=== PATIENT | female | born 1930 | race Caucasian/White ===

== ENCOUNTER 2017-08-21 15:16 | Inpatient (IN) ==
[2017-08-21] MEDS ORDERED: ACETAMINOPHEN 325 MG TABLET PO PRN (16:54)
[2017-08-21] MEDS ORDERED: ONDANSETRON 4 MG/2 ML VIAL IV PRN (16:55)
[2017-08-21] MEDS ORDERED: LOPERAMIDE 2 MG CAPSULE PO PRN ×2 (16:56)
[2017-08-21] MEDS ORDERED: ALUMINUM/MAGNES/SIMETH MAX STR 30 ML UDCUP PO PRN (16:56)
[2017-08-21] MEDS ORDERED: guaiFENesin 200 MG/10 ML UDCUP PO PRN (16:57)
[2017-08-21 17:30] LABS: Basophils # 0.1 10*3/uL (0.0-0.2); Basophils % 0.5 % (0.0-0.8); Eosinophils % 0.1 % (0.00-10.9); Hematocrit 35.2 VOL% (35.7-47.0); Hemoglobin 11.8 GM/DL (12.0-16.0); Immature Granulocytes % 0.8 %; Immature Granulocytes Absolute 0.11 #; Lymphocytes % 6.9 % (21.3-54.2); Mean Corpuscular HGB Conc 33.5 GM/DL (32-36); Mean Corpuscular Hemoglobin 33 PG (27-34); Mean Corpuscular Volume 98.1 FL (87-102); Mean Platelet Volume 11.3 FL (9.6-12.0); Monocytes # 1.5 10*3/uL (0.11-0.8); Monocytes % 10.4 % (1.7-12.7); Neutrophils # 11.9 10*3/uL (1.4-7.4); Neutrophils % 81.3 % (38.7-73.9); Platelet Count 310 T/CUMM (130-400); Red Blood Count 3.59 MC/CUMM (3.8-5.5); Red Cell Distribution Width 13.5 % (9.3-17.3); White Blood Count 14.6 T/CUMM (4-12)
[2017-08-21 17:57] LABS: Lymphocytes 7 % (20-55); Platelet Estimate Adequate; Segmented Neutrophils 83 % (50-85); Total Cells Counted 100
[2017-08-21] MEDS: CEFEPIME 1,000 MG in SYRINGE 1 EACH IV SCH (17:59)
[2017-08-21] MEDS: LEVOFLOXACIN INJ 500 MG in PREMIX 1 EACH IV SCH (17:59)
[2017-08-21 18:04] LABS: Albumin 2.9 G/DL (3.4-5.0); Bilirubin,Total 0.8 MG/DL (0.2-1.0); Calcium 8.2 MG/DL (8.5-10.1); Osmolality,Calculated 307.3 MOS/KG (273-304); Potassium 4.3 MMOL/L (3.5-5.1); Total Protein 6.6 G/DL (6.4-8.3)
[2017-08-21] MEDS: ARFORMOTEROL 15 MCG/2 ML NEB RESP TX SCH (18:33)
[2017-08-21] MEDS: BUDESONIDE 0.5 MG/2 ML NEB RESP TX SCH (18:37)
[2017-08-21] MEDS: ALBUTEROL/IPRATROPIUM 3 ML NEB RESP TX SCH (18:37)
[2017-08-21] MEDS: DONEPEZIL 10 MG TABLET PO SCH (21:14)
[2017-08-21] MEDS: MEMANTINE 10 MG TABLET PO SCH (21:14)
[2017-08-21 22:07] LABS: Apearance,Urine Slightly Hazy (Clear); Bacteria,Urine Occasional /HPF (Few); Bilirubin,Urine Negative (Negative); Blood, Urine Negative (Negative); Glucose,Urine (UA) Negative (Negative); Hyaline Casts,Urine 8 /LPF (0-3); Ketones,Urine Negative (Negative); Mucus,Urine Occasional /LPF (Occasional); Nitrite,Urine Negative (Negative); Protein,Urine 30 MG/DL; RBC,Urine 4 /HPF (0-4); Squamous Epithelial Cell,Urine Occasional /HPF (0-10); Urine Color Yellow (Yellow); WBC,Urine 10 /HPF (0-6)
[2017-08-22] MEDS: CLORAZEPATE 3.75 MG TABLET PO PRN (03:15)
[2017-08-22] MEDS: ALBUTEROL/IPRATROPIUM 3 ML NEB RESP TX SCH ×4 (03:46→19:55)
[2017-08-22] MEDS: CEFEPIME 1,000 MG in SYRINGE 1 EACH IV SCH ×2 (06:16→21:47)
[2017-08-22] MEDS ORDERED: FUROSEMIDE 40 MG/4 ML VIAL IV ONE (06:33)
[2017-08-22] MEDS: BUDESONIDE 0.5 MG/2 ML NEB RESP TX SCH ×2 (07:52→19:56)
[2017-08-22] MEDS: LEVOTHYROXINE 100 MCG TABLET PO SCH (09:30)
[2017-08-22] MEDS: ASPIRIN EC 81 MG TABLET PO SCH (09:30)
[2017-08-22] MEDS: DILTIAZEM CD 180 MG CAPSULE PO SCH (09:31)
[2017-08-22] MEDS: MEMANTINE 10 MG TABLET PO SCH ×2 (09:32→20:37)
[2017-08-22] MEDS: SERTRALINE 50 MG TABLET PO SCH (09:33)
[2017-08-22] MEDS: MULTIVITAMIN (OCUVITE) TABLET PO SCH (09:33)
[2017-08-22] MEDS ORDERED: DIGOXIN 0.5 MG/2 ML AMP IV ONE ×3 (12:00→18:03)
[2017-08-22] MEDS: APIXABAN 2.5 MG TABLET PO SCH ×2 (13:12→20:37)
[2017-08-22] MEDS: ARFORMOTEROL 15 MCG/2 ML NEB RESP TX SCH ×2 (14:28→19:55)
[2017-08-22] MEDS: METOPROLOL TARTRATE 25 MG TABLET PO SCH ×2 (15:55→20:37)
[2017-08-22] MEDS: LEVOFLOXACIN INJ 500 MG in PREMIX 1 EACH IV SCH (20:37)
[2017-08-22] MEDS: DONEPEZIL 10 MG TABLET PO SCH (20:37)
[2017-08-22] MEDS ORDERED: DILTIAZEM 25 MG/5 ML VIAL IV ONE (21:01)
[2017-08-22] MEDS ORDERED: MORPHINE 2 MG/1 ML SYRINGE IV ONE (21:02)
[2017-08-22] MEDS ORDERED: AMIODARONE INJ 150 MG in DEXTROSE 5% 100 ML IV ONE (21:14)
[2017-08-22] MEDS ORDERED: AMIODARONE 150 MG/3 ML VIAL ONE (21:17)
[2017-08-22] MEDS ORDERED: AMIODARONE INJ 450 MG in DEXTROSE 5% 241 ML IV SCH (21:30)
[2017-08-22] MEDS ORDERED: DILTIAZEM INJ 100 MG in SODIUM CHLORIDE 0.9% 100 ML IV SCH (21:30)
[2017-08-23] MEDS: ALBUTEROL/IPRATROPIUM 3 ML NEB RESP TX SCH ×4 (00:03→20:04)
[2017-08-23 05:35] LABS: Basophils % 0.3 % (0.0-0.8); Eosinophils # 0.1 10*3/uL (0.0-0.87); Eosinophils % 0.4 % (0.00-10.9); Hematocrit 32.4 VOL% (35.7-47.0); Hemoglobin 10.8 GM/DL (12.0-16.0); Immature Granulocytes Absolute 0.31 #; Lymphocytes # 1.3 10*3/uL (1.4-4.0); Mean Corpuscular HGB Conc 33.3 GM/DL (32-36); Mean Corpuscular Hemoglobin 33 PG (27-34); Mean Corpuscular Volume 97.9 FL (87-102); Mean Platelet Volume 11.3 FL (9.6-12.0); Monocytes # 1.3 10*3/uL (0.11-0.8); Monocytes % 8.3 % (1.7-12.7); NRBC # 0.05 10*3/uL; Neutrophils # 12.7 10*3/uL (1.4-7.4); Platelet Count 310 T/CUMM (130-400); Red Blood Count 3.31 MC/CUMM (3.8-5.5); Red Cell Distribution Width 13.4 % (9.3-17.3); White Blood Count 15.7 T/CUMM (4-12)
[2017-08-23] MEDS: LEVOTHYROXINE 100 MCG TABLET PO SCH (06:05)
[2017-08-23 06:07] LABS: Calcium 7.8 MG/DL (8.5-10.1); Osmolality,Calculated 293.5 MOS/KG (273-304); Potassium 3.9 MMOL/L (3.5-5.1)
[2017-08-23] MEDS: ARFORMOTEROL 15 MCG/2 ML NEB RESP TX SCH ×2 (07:40→20:04)
[2017-08-23] MEDS: BUDESONIDE 0.5 MG/2 ML NEB RESP TX SCH ×2 (07:40→20:04)
[2017-08-23] MEDS: AMIODARONE INJ 450 MG in DEXTROSE 5% 241 ML IV SCH (08:30)
[2017-08-23] MEDS ORDERED: FUROSEMIDE 40 MG/4 ML VIAL IV ONE (08:50)
[2017-08-23] MEDS: APIXABAN 2.5 MG TABLET PO SCH ×2 (08:54→21:43)
[2017-08-23] MEDS: DILTIAZEM CD 180 MG CAPSULE PO SCH (08:54)
[2017-08-23] MEDS: METOPROLOL TARTRATE 25 MG TABLET PO SCH ×2 (08:54→19:10)
[2017-08-23] MEDS: MULTIVITAMIN (OCUVITE) TABLET PO SCH (08:54)
[2017-08-23] MEDS: ASPIRIN EC 81 MG TABLET PO SCH (08:54)
[2017-08-23] MEDS: SERTRALINE 50 MG TABLET PO SCH (08:55)
[2017-08-23] MEDS: MEMANTINE 10 MG TABLET PO SCH ×2 (08:55→21:43)
[2017-08-23] MEDS: CEFEPIME 1,000 MG in SYRINGE 1 EACH IV SCH ×2 (10:28→21:39)
[2017-08-23] MEDS: LEVOFLOXACIN INJ 500 MG in PREMIX 1 EACH IV SCH (21:43)
[2017-08-24] MEDS: AMIODARONE INJ 450 MG in DEXTROSE 5% 241 ML IV SCH (00:46)
[2017-08-24] MEDS: METOPROLOL TARTRATE 25 MG TABLET PO SCH ×3 (00:49→13:54)
[2017-08-24] MEDS: ALBUTEROL/IPRATROPIUM 3 ML NEB RESP TX SCH ×4 (01:57→19:00)
[2017-08-24 02:47] LABS: Basophils # 0.1 10*3/uL (0.0-0.2); Basophils % 0.4 % (0.0-0.8); Eosinophils # 0.1 10*3/uL (0.0-0.87); Eosinophils % 0.4 % (0.00-10.9); Hematocrit 32.1 VOL% (35.7-47.0); Hemoglobin 10.5 GM/DL (12.0-16.0); Immature Granulocytes % 2.4 %; Immature Granulocytes Absolute 0.44 #; Lymphocytes # 1.2 10*3/uL (1.4-4.0); Lymphocytes % 6.5 % (21.3-54.2); Mean Corpuscular HGB Conc 32.7 GM/DL (32-36); Mean Corpuscular Hemoglobin 32 PG (27-34); Mean Corpuscular Volume 98.5 FL (87-102); Mean Platelet Volume 11.2 FL (9.6-12.0); Monocytes # 1.4 10*3/uL (0.11-0.8); Monocytes % 7.5 % (1.7-12.7); NRBC # 0.06 10*3/uL; Neutrophils # 15.2 10*3/uL (1.4-7.4); Neutrophils % 82.8 % (38.7-73.9); Platelet Count 321 T/CUMM (130-400); Red Blood Count 3.26 MC/CUMM (3.8-5.5); Red Cell Distribution Width 13.2 % (9.3-17.3); White Blood Count 18.4 T/CUMM (4-12)
[2017-08-24 04:41] LABS: Calcium 8.1 MG/DL (8.5-10.1); Osmolality,Calculated 292.4 MOS/KG (273-304)
[2017-08-24] MEDS: DILTIAZEM 60 MG TABLET PO SCH ×2 (05:03→13:54)
[2017-08-24] MEDS: LEVOTHYROXINE 100 MCG TABLET PO SCH (05:30)
[2017-08-24] MEDS: ARFORMOTEROL 15 MCG/2 ML NEB RESP TX SCH ×2 (07:05→19:00)
[2017-08-24] MEDS: BUDESONIDE 0.5 MG/2 ML NEB RESP TX SCH ×2 (07:05→19:00)
[2017-08-24] MEDS: APIXABAN 2.5 MG TABLET PO SCH ×2 (08:53→21:42)
[2017-08-24] MEDS: ASPIRIN EC 81 MG TABLET PO SCH (08:53)
[2017-08-24] MEDS: MULTIVITAMIN (OCUVITE) TABLET PO SCH (08:53)
[2017-08-24] MEDS: CEFEPIME 1,000 MG in SYRINGE 1 EACH IV SCH ×2 (08:53→21:42)
[2017-08-24] MEDS: MEMANTINE 10 MG TABLET PO SCH ×2 (08:53→21:42)
[2017-08-24] MEDS: SERTRALINE 50 MG TABLET PO SCH (08:53)
[2017-08-24] MEDS: ALBUTEROL 2.5 MG/3 ML NEB RESP TX PRN (14:43)
[2017-08-24] MEDS: DILTIAZEM 30 MG TABLET PO SCH (17:09)
[2017-08-24] MEDS: CLORAZEPATE 3.75 MG TABLET PO PRN (20:08)
[2017-08-24] MEDS ORDERED: BISOPROLOL 5 MG TABLET PO SCH (21:00)
[2017-08-24] MEDS: LEVOFLOXACIN INJ 500 MG in PREMIX 1 EACH IV SCH (21:50)
[2017-08-25] MEDS: ALBUTEROL/IPRATROPIUM 3 ML NEB RESP TX SCH ×4 (00:20→19:42)
[2017-08-25] MEDS: DILTIAZEM 30 MG TABLET PO SCH ×4 (01:27→17:38)
[2017-08-25] MEDS: LEVOTHYROXINE 100 MCG TABLET PO SCH (05:44)
[2017-08-25 06:09] LABS: Basophils # 0.1 10*3/uL (0.0-0.2); Basophils % 0.4 % (0.0-0.8); Eosinophils # 0.2 10*3/uL (0.0-0.87); Eosinophils % 1.1 % (0.00-10.9); Hematocrit 31.6 VOL% (35.7-47.0); Hemoglobin 10.1 GM/DL (12.0-16.0); Immature Granulocytes Absolute 0.34 #; Lymphocytes # 1.2 10*3/uL (1.4-4.0); Lymphocytes % 7.1 % (21.3-54.2); Mean Corpuscular Hemoglobin 32 PG (27-34); Mean Corpuscular Volume 100.3 FL (87-102); Mean Platelet Volume 11.1 FL (9.6-12.0); Monocytes # 1.2 10*3/uL (0.11-0.8); Monocytes % 6.9 % (1.7-12.7); Neutrophils # 14.1 10*3/uL (1.4-7.4); Neutrophils % 82.5 % (38.7-73.9); Platelet Count 325 T/CUMM (130-400); Red Blood Count 3.15 MC/CUMM (3.8-5.5); Red Cell Distribution Width 13.6 % (9.3-17.3); White Blood Count 17.1 T/CUMM (4-12)
[2017-08-25 06:47] LABS: Calcium 8.3 MG/DL (8.5-10.1); Osmolality,Calculated 286.5 MOS/KG (273-304); Potassium 4.3 MMOL/L (3.5-5.1)
[2017-08-25] MEDS: BUDESONIDE 0.5 MG/2 ML NEB RESP TX SCH ×2 (07:10→19:44)
[2017-08-25] MEDS: ARFORMOTEROL 15 MCG/2 ML NEB RESP TX SCH ×2 (07:10→19:44)
[2017-08-25] MEDS: MEMANTINE 10 MG TABLET PO SCH ×2 (08:31→21:56)
[2017-08-25] MEDS: ASPIRIN EC 81 MG TABLET PO SCH (08:31)
[2017-08-25] MEDS: SERTRALINE 50 MG TABLET PO SCH (08:31)
[2017-08-25] MEDS: MULTIVITAMIN (OCUVITE) TABLET PO SCH (08:31)
[2017-08-25] MEDS: APIXABAN 2.5 MG TABLET PO SCH ×2 (08:31→21:56)
[2017-08-25] MEDS: CEFEPIME 1,000 MG in SYRINGE 1 EACH IV SCH ×2 (08:31→21:57)
[2017-08-25] MEDS ORDERED: DIGOXIN 0.25 MG TABLET PO ONE ×2 (12:43→18:00)
[2017-08-25] MEDS: BISOPROLOL 5 MG TABLET PO SCH (21:56)
[2017-08-25] MEDS: LEVOFLOXACIN INJ 500 MG in PREMIX 1 EACH IV SCH (22:00)
[2017-08-26] MEDS: ALBUTEROL/IPRATROPIUM 3 ML NEB RESP TX SCH ×4 (00:55→20:35)
[2017-08-26] MEDS: DILTIAZEM 30 MG TABLET PO SCH ×4 (01:20→18:04)
[2017-08-26 04:59] LABS: Basophils # 0.1 10*3/uL (0.0-0.2); Basophils % 0.4 % (0.0-0.8); Eosinophils # 0.2 10*3/uL (0.0-0.87); Eosinophils % 1.4 % (0.00-10.9); Hematocrit 30.9 VOL% (35.7-47.0); Hemoglobin 10.3 GM/DL (12.0-16.0); Immature Granulocytes % 2.2 %; Immature Granulocytes Absolute 0.36 #; Lymphocytes # 1.3 10*3/uL (1.4-4.0); Mean Corpuscular HGB Conc 33.3 GM/DL (32-36); Mean Corpuscular Hemoglobin 33 PG (27-34); Mean Corpuscular Volume 97.5 FL (87-102); Mean Platelet Volume 10.9 FL (9.6-12.0); Monocytes # 1.1 10*3/uL (0.11-0.8); Monocytes % 6.6 % (1.7-12.7); Neutrophils # 13.1 10*3/uL (1.4-7.4); Neutrophils % 81.4 % (38.7-73.9); Platelet Count 333 T/CUMM (130-400); Red Blood Count 3.17 MC/CUMM (3.8-5.5); Red Cell Distribution Width 13.5 % (9.3-17.3); White Blood Count 16.1 T/CUMM (4-12)
[2017-08-26 06:00] LABS: Calcium 8.2 MG/DL (8.5-10.1); Osmolality,Calculated 288.7 MOS/KG (273-304); Potassium 4.8 MMOL/L (3.5-5.1)
[2017-08-26] MEDS: LEVOTHYROXINE 100 MCG TABLET PO SCH (06:07)
[2017-08-26] MEDS ORDERED: FUROSEMIDE 20 MG/2 ML VIAL IV ONE (07:48)
[2017-08-26] MEDS: ARFORMOTEROL 15 MCG/2 ML NEB RESP TX SCH ×2 (07:57→20:35)
[2017-08-26] MEDS: BUDESONIDE 0.5 MG/2 ML NEB RESP TX SCH ×2 (07:57→20:35)
[2017-08-26] MEDS ORDERED: DIGOXIN 0.125 MG TABLET PO SCH (09:00)
[2017-08-26] MEDS: MULTIVITAMIN (OCUVITE) TABLET PO SCH (09:42)
[2017-08-26] MEDS: ASPIRIN EC 81 MG TABLET PO SCH (09:42)
[2017-08-26] MEDS: SERTRALINE 50 MG TABLET PO SCH (09:43)
[2017-08-26] MEDS: MEMANTINE 10 MG TABLET PO SCH ×2 (09:43→22:01)
[2017-08-26] MEDS: APIXABAN 2.5 MG TABLET PO SCH ×2 (09:43→22:01)
[2017-08-26] MEDS: CEFEPIME 1,000 MG in SYRINGE 1 EACH IV SCH ×2 (09:45→22:02)
[2017-08-26] MEDS: BISOPROLOL 5 MG TABLET PO SCH ×2 (09:45→22:02)
[2017-08-26] MEDS: DILTIAZEM CD 120 MG CAPSULE PO SCH (22:02)
[2017-08-26] MEDS: LEVOFLOXACIN INJ 500 MG in PREMIX 1 EACH IV SCH (22:09)
[2017-08-27] MEDS: ALBUTEROL/IPRATROPIUM 3 ML NEB RESP TX SCH ×4 (01:48→19:30)
[2017-08-27] MEDS: LEVOTHYROXINE 100 MCG TABLET PO SCH (06:11)
[2017-08-27] MEDS: ARFORMOTEROL 15 MCG/2 ML NEB RESP TX SCH ×2 (07:02→19:30)
[2017-08-27] MEDS: BUDESONIDE 0.5 MG/2 ML NEB RESP TX SCH ×2 (07:02→19:30)
[2017-08-27] MEDS ORDERED: FUROSEMIDE 40 MG/4 ML VIAL IV ONE (08:13)
[2017-08-27] MEDS: APIXABAN 2.5 MG TABLET PO SCH ×2 (10:13→22:03)
[2017-08-27] MEDS: SERTRALINE 50 MG TABLET PO SCH (10:13)
[2017-08-27] MEDS: DILTIAZEM CD 120 MG CAPSULE PO SCH (10:13)
[2017-08-27] MEDS: ASPIRIN EC 81 MG TABLET PO SCH (10:13)
[2017-08-27] MEDS: BISOPROLOL 5 MG TABLET PO SCH ×2 (10:14→22:03)
[2017-08-27] MEDS: MULTIVITAMIN (OCUVITE) TABLET PO SCH (10:14)
[2017-08-27] MEDS: CEFEPIME 1,000 MG in SYRINGE 1 EACH IV SCH ×2 (10:16→22:03)
[2017-08-27] MEDS: MEMANTINE 10 MG TABLET PO SCH ×2 (10:23→22:03)
[2017-08-27] MEDS ORDERED: DIGOXIN 0.5 MG/2 ML AMP IV ONE (17:11)
[2017-08-27] MEDS: LEVOFLOXACIN INJ 500 MG in PREMIX 1 EACH IV SCH (22:06)
[2017-08-28] MEDS: ALBUTEROL/IPRATROPIUM 3 ML NEB RESP TX SCH ×2 (00:16→07:21)
[2017-08-28 05:15] LABS: Basophils # 0.1 10*3/uL (0.0-0.2); Basophils % 0.4 % (0.0-0.8); Eosinophils # 0.2 10*3/uL (0.0-0.87); Eosinophils % 1.4 % (0.00-10.9); Hematocrit 29.9 VOL% (35.7-47.0); Hemoglobin 9.6 GM/DL (12.0-16.0); Immature Granulocytes % 1.2 %; Immature Granulocytes Absolute 0.15 #; Lymphocytes # 1.4 10*3/uL (1.4-4.0); Lymphocytes % 11.3 % (21.3-54.2); Mean Corpuscular HGB Conc 32.1 GM/DL (32-36); Mean Corpuscular Hemoglobin 32 PG (27-34); Mean Corpuscular Volume 100.7 FL (87-102); Mean Platelet Volume 10.5 FL (9.6-12.0); Monocytes # 0.9 10*3/uL (0.11-0.8); Monocytes % 7.5 % (1.7-12.7); Neutrophils # 9.7 10*3/uL (1.4-7.4); Neutrophils % 78.2 % (38.7-73.9); Platelet Count 323 T/CUMM (130-400); Red Blood Count 2.97 MC/CUMM (3.8-5.5); Red Cell Distribution Width 13.8 % (9.3-17.3); White Blood Count 12.5 T/CUMM (4-12)
[2017-08-28 05:52] LABS: Osmolality,Calculated 288.5 MOS/KG (273-304)
[2017-08-28] MEDS: LEVOTHYROXINE 100 MCG TABLET PO SCH (06:07)
[2017-08-28] MEDS: BUDESONIDE 0.5 MG/2 ML NEB RESP TX SCH ×2 (07:21→18:50)
[2017-08-28] MEDS: ARFORMOTEROL 15 MCG/2 ML NEB RESP TX SCH ×2 (07:21→18:50)
[2017-08-28] MEDS ORDERED: LEVOFLOXACIN 250 MG TABLET PO SCH (09:00)
[2017-08-28] MEDS: MULTIVITAMIN (OCUVITE) TABLET PO SCH (09:31)
[2017-08-28] MEDS: MEMANTINE 10 MG TABLET PO SCH ×2 (09:31→21:30)
[2017-08-28] MEDS: BISOPROLOL 5 MG TABLET PO SCH ×3 (09:31→21:30)
[2017-08-28] MEDS: ASPIRIN EC 81 MG TABLET PO SCH (09:31)
[2017-08-28] MEDS: APIXABAN 2.5 MG TABLET PO SCH ×2 (09:32→21:30)
[2017-08-28] MEDS: SERTRALINE 50 MG TABLET PO SCH (09:32)
[2017-08-28] MEDS ORDERED: DIGOXIN 0.125 MG TABLET PO SCH ×2 (13:00→17:10)
[2017-08-28] MEDS ORDERED: FUROSEMIDE 40 MG TABLET PO SCH (14:30)
[2017-08-28] MEDS: CLORAZEPATE 3.75 MG TABLET PO PRN (14:42)
[2017-08-28] MEDS ORDERED: DIGOXIN 0.125 MG TABLET PO ONE (17:09)
[2017-08-28] MEDS ORDERED: DIGOXIN 0.5 MG/2 ML AMP IV ONE (17:11)
[2017-08-29] MEDS: CLORAZEPATE 3.75 MG TABLET PO PRN (01:51)
[2017-08-29] MEDS: ALBUTEROL 2.5 MG/3 ML NEB RESP TX PRN (02:10)
[2017-08-29 05:04] LABS: Basophils % 0.5 % (0.0-0.8); Eosinophils # 0.2 10*3/uL (0.0-0.87); Eosinophils % 2.1 % (0.00-10.9); Hematocrit 29.9 VOL% (35.7-47.0); Hemoglobin 9.8 GM/DL (12.0-16.0); Immature Granulocytes % 1.1 %; Lymphocytes # 1.4 10*3/uL (1.4-4.0); Lymphocytes % 16.3 % (21.3-54.2); Mean Corpuscular HGB Conc 32.8 GM/DL (32-36); Mean Corpuscular Hemoglobin 33 PG (27-34); Mean Platelet Volume 10.2 FL (9.6-12.0); Monocytes # 0.8 10*3/uL (0.11-0.8); Monocytes % 8.6 % (1.7-12.7); Neutrophils # 6.3 10*3/uL (1.4-7.4); Neutrophils % 71.4 % (38.7-73.9); Platelet Count 325 T/CUMM (130-400); Red Blood Count 3.02 MC/CUMM (3.8-5.5); Red Cell Distribution Width 13.6 % (9.3-17.3); White Blood Count 8.8 T/CUMM (4-12)
[2017-08-29 05:40] LABS: Calcium 8.2 MG/DL (8.5-10.1)
[2017-08-29 05:41] LABS: Osmolality,Calculated 290.4 MOS/KG (273-304); Potassium 4.9 MMOL/L (3.5-5.1)
[2017-08-29] MEDS: LEVOTHYROXINE 100 MCG TABLET PO SCH (05:52)
[2017-08-29] MEDS: ARFORMOTEROL 15 MCG/2 ML NEB RESP TX SCH (08:17)
[2017-08-29] MEDS: BUDESONIDE 0.5 MG/2 ML NEB RESP TX SCH ×2 (08:53→19:02)
[2017-08-29] MEDS: MULTIVITAMIN (OCUVITE) TABLET PO SCH (09:02)
[2017-08-29] MEDS: SERTRALINE 50 MG TABLET PO SCH (09:03)
[2017-08-29] MEDS: FUROSEMIDE 40 MG TABLET PO SCH (09:03)
[2017-08-29] MEDS: MEMANTINE 10 MG TABLET PO SCH ×2 (09:03→21:34)
[2017-08-29] MEDS: APIXABAN 2.5 MG TABLET PO SCH ×2 (09:04→21:34)
[2017-08-29] MEDS: BISOPROLOL 5 MG TABLET PO SCH ×2 (09:04→21:34)
[2017-08-29] MEDS: ASPIRIN EC 81 MG TABLET PO SCH (09:04)
[2017-08-29] MEDS: MAGNESIUM HYDROXIDE SUSP 30 ML UDCUP PO PRN (09:06)
[2017-08-29] MEDS ORDERED: DIGOXIN 0.25 MG TABLET PO SCH (13:00)
[2017-08-29] MEDS ORDERED: DIGOXIN 0.125 MG TABLET PO SCH (13:00)
[2017-08-29] MEDS ORDERED: TUBERCULIN SKIN TEST 0.1 ML SYRINGE INTRADERM ONE (15:30)
[2017-08-30] MEDS ORDERED: CLORAZEPATE 3.75 MG TABLET PO PRN (00:25)
[2017-08-30] MEDS: LEVOTHYROXINE 100 MCG TABLET PO SCH (05:52)
[2017-08-30 05:54] LABS: Basophils # 0.1 10*3/uL (0.0-0.2); Basophils % 0.7 % (0.0-0.8); Eosinophils # 0.2 10*3/uL (0.0-0.87); Eosinophils % 2.3 % (0.00-10.9); Hematocrit 31.6 VOL% (35.7-47.0); Hemoglobin 10.3 GM/DL (12.0-16.0); Immature Granulocytes % 0.7 %; Immature Granulocytes Absolute 0.06 #; Lymphocytes # 1.6 10*3/uL (1.4-4.0); Lymphocytes % 18.3 % (21.3-54.2); Mean Corpuscular HGB Conc 32.6 GM/DL (32-36); Mean Corpuscular Hemoglobin 32 PG (27-34); Mean Corpuscular Volume 99.4 FL (87-102); Mean Platelet Volume 10.4 FL (9.6-12.0); Monocytes # 0.8 10*3/uL (0.11-0.8); Monocytes % 9.4 % (1.7-12.7); Neutrophils # 5.9 10*3/uL (1.4-7.4); Neutrophils % 68.6 % (38.7-73.9); Platelet Count 327 T/CUMM (130-400); Red Blood Count 3.18 MC/CUMM (3.8-5.5); Red Cell Distribution Width 13.6 % (9.3-17.3); White Blood Count 8.6 T/CUMM (4-12)
[2017-08-30 06:29] LABS: Calcium 8.4 MG/DL (8.5-10.1); Osmolality,Calculated 289.5 MOS/KG (273-304); Potassium 5.1 MMOL/L (3.5-5.1)
[2017-08-30] MEDS: BUDESONIDE 0.5 MG/2 ML NEB RESP TX SCH ×2 (07:55→19:50)
[2017-08-30] MEDS: ASPIRIN EC 81 MG TABLET PO SCH ×2 (09:16→14:12)
[2017-08-30] MEDS: MEMANTINE 10 MG TABLET PO SCH ×3 (09:16→20:56)
[2017-08-30] MEDS: MULTIVITAMIN (OCUVITE) TABLET PO SCH ×2 (09:16→14:11)
[2017-08-30] MEDS: FUROSEMIDE 40 MG TABLET PO SCH ×2 (09:16→14:12)
[2017-08-30] MEDS: BISOPROLOL 5 MG TABLET PO SCH ×3 (09:16→20:56)
[2017-08-30] MEDS: SERTRALINE 50 MG TABLET PO SCH ×2 (09:16→14:12)
[2017-08-30] MEDS: APIXABAN 2.5 MG TABLET PO SCH ×3 (09:16→20:56)
[2017-08-30] MEDS: MAGNESIUM HYDROXIDE SUSP 30 ML UDCUP PO PRN (14:08)
[2017-08-31 05:26] LABS: Calcium 8.4 MG/DL (8.5-10.1); Osmolality,Calculated 288.5 MOS/KG (273-304); Potassium 4.8 MMOL/L (3.5-5.1)
[2017-08-31] MEDS: LEVOTHYROXINE 100 MCG TABLET PO SCH (05:59)
[2017-08-31] MEDS: BUDESONIDE 0.5 MG/2 ML NEB RESP TX SCH ×2 (07:39→21:35)
[2017-08-31] MEDS: BISOPROLOL 5 MG TABLET PO SCH ×2 (09:05→20:58)
[2017-08-31] MEDS: MULTIVITAMIN (OCUVITE) TABLET PO SCH (09:05)
[2017-08-31] MEDS: SERTRALINE 50 MG TABLET PO SCH (09:05)
[2017-08-31] MEDS: ASPIRIN EC 81 MG TABLET PO SCH (09:05)
[2017-08-31] MEDS: MEMANTINE 10 MG TABLET PO SCH ×2 (09:05→20:58)
[2017-08-31] MEDS: APIXABAN 2.5 MG TABLET PO SCH ×2 (09:05→20:58)
[2017-08-31] MEDS: FUROSEMIDE 40 MG TABLET PO SCH (09:05)
[2017-08-31] MEDS ORDERED: DIGOXIN 0.125 MG TABLET PO SCH (13:00)
[2017-09-01 05:09] LABS: Osmolality,Calculated 292.1 MOS/KG (273-304); Potassium 4.9 MMOL/L (3.5-5.1)
[2017-09-01] MEDS: LEVOTHYROXINE 100 MCG TABLET PO SCH (06:17)
[2017-09-01] MEDS: BUDESONIDE 0.5 MG/2 ML NEB RESP TX SCH ×2 (07:23→20:15)
[2017-09-01] MEDS: APIXABAN 2.5 MG TABLET PO SCH ×2 (09:10→21:05)
[2017-09-01] MEDS: BISOPROLOL 5 MG TABLET PO SCH ×2 (09:10→21:05)
[2017-09-01] MEDS: SERTRALINE 50 MG TABLET PO SCH (09:11)
[2017-09-01] MEDS: ASPIRIN EC 81 MG TABLET PO SCH (09:11)
[2017-09-01] MEDS: MULTIVITAMIN (OCUVITE) TABLET PO SCH (09:11)
[2017-09-01] MEDS: MEMANTINE 10 MG TABLET PO SCH ×2 (09:11→21:05)
[2017-09-01] MEDS: FUROSEMIDE 40 MG TABLET PO SCH (09:11)
[2017-09-02 06:10] LABS: Calcium 8.3 MG/DL (8.5-10.1); Osmolality,Calculated 290.3 MOS/KG (273-304); Potassium 4.4 MMOL/L (3.5-5.1)
[2017-09-02] MEDS: LEVOTHYROXINE 100 MCG TABLET PO SCH (06:13)
[2017-09-02] MEDS: BUDESONIDE 0.5 MG/2 ML NEB RESP TX SCH (07:35)
[2017-09-02 08:24] VITALS: BP 83/60
[2017-09-02] MEDS: FUROSEMIDE 40 MG TABLET PO SCH (09:30)
[2017-09-02] MEDS: SERTRALINE 50 MG TABLET PO SCH (09:30)
[2017-09-02] MEDS: BISOPROLOL 5 MG TABLET PO SCH (09:30)
[2017-09-02] MEDS: MULTIVITAMIN (OCUVITE) TABLET PO SCH (09:30)
[2017-09-02] MEDS: MEMANTINE 10 MG TABLET PO SCH (09:30)
[2017-09-02] MEDS: APIXABAN 2.5 MG TABLET PO SCH (09:30)
[2017-09-02] MEDS: ASPIRIN EC 81 MG TABLET PO SCH (09:30)
== END 2017-09-02 14:14 | DRG 291 ==
LOC: N.2E 16:27 → N.TELEN 08-22 22:09
PROVIDERS: ADMIT Internal Medicine Pulmonary Disease; ATTEND Internal Medicine Pulmonary Disease

== ENCOUNTER 2018-10-27 04:09 | Inpatient (IN) ==
[2018-10-27] MEDS ORDERED: SODIUM CHLORIDE 0.9% 1,000 ML IV STA (04:19)
[2018-10-27] MEDS ORDERED: ASPIRIN 325 MG TABLET PO STA (04:19)
[2018-10-27 04:54] LABS: Basophils % 0.3 % (0.0-0.8); Eosinophils % 0.4 % (0.00-10.9); Hematocrit 19.8 VOL% (35.7-47.0); Immature Granulocytes % 0.6 %; Immature Granulocytes Absolute 0.05 #; Lymphocytes % 12.6 % (21.3-54.2); Mean Corpuscular HGB Conc 30.8 GM/DL (32-36); Mean Platelet Volume 10.7 FL (9.6-12.0); Monocytes % 5.4 % (1.7-12.7); Neutrophils % 80.7 % (38.7-73.9); Platelet Count 233 T/CUMM (130-400); Red Cell Distribution Width 13.6 % (9.3-17.3); White Blood Count 7.8 T/CUMM (4-12)
[2018-10-27 04:56] LABS: Alanine Aminotransferase 10 U/L (13-56); Albumin 2.4 G/DL (3.4-5.0); Alkaline Phosphatase 51 U/L (45-117); Aspartate Amino Transferase 12 U/L (0-37); Bilirubin,Total < 0.39 MG/DL (0.2-1.0); Blood Urea Nitrogen 88 MG/DL (7-18); Calcium 7.7 MG/DL (8.5-10.1); Glucose 108 MG/DL (74-106); Osmolality,Calculated 306.4 MOS/KG (273-304); Total Protein 6.1 G/DL (6.4-8.3)
[2018-10-27 05:02] LABS: Hemoglobin 6.1 GM/DL (12.0-16.0)
[2018-10-27] MEDS ORDERED: SODIUM CHLORIDE 0.9% 1,000 ML IV PRN (05:12)
[2018-10-27] MEDS ORDERED: ONDANSETRON 4 MG/2 ML VIAL IV PRN (07:29)
[2018-10-27] MEDS ORDERED: ACETAMINOPHEN 325 MG TABLET PO PRN (07:29)
[2018-10-27] MEDS: SODIUM CHLORIDE 0.9% 1,000 ML IV SCH ×2 (07:48→16:42)
[2018-10-27] MEDS: DIGOXIN 0.125 MG TABLET PO SCH ×2 (08:49→08:50)
[2018-10-27] MEDS: ALBUTEROL/IPRATROPIUM 3 ML NEB RESP TX SCH ×2 (13:33→19:33)
[2018-10-27] MEDS: PANTOPRAZOLE 40 MG TABLET PO SCH ×2 (14:01→22:14)
[2018-10-27] MEDS: DONEPEZIL 10 MG TABLET PO SCH ×2 (15:08→21:13)
[2018-10-27 15:47] LABS: Basophils % 0.4 % (0.0-0.8); Eosinophils % 0.2 % (0.00-10.9); Hematocrit 33.8 VOL% (35.7-47.0); Immature Granulocytes % 0.9 %; Immature Granulocytes Absolute 0.09 #; Lymphocytes # 0.7 10*3/uL (1.4-4.0); Mean Corpuscular HGB Conc 31.7 GM/DL (32-36); Mean Corpuscular Volume 91.6 FL (87-102); Mean Platelet Volume 10.2 FL (9.6-12.0); Monocytes % 2.4 % (1.7-12.7); Neutrophils % 89.1 % (38.7-73.9); Platelet Count 190 T/CUMM (130-400); Red Blood Count 3.69 MC/CUMM (3.8-5.5); Red Cell Distribution Width 19.1 % (9.3-17.3); White Blood Count 10.1 T/CUMM (4-12)
[2018-10-27 15:49] LABS: Hemoglobin 10.7 GM/DL (12.0-16.0)
[2018-10-27] MEDS: BUDESONIDE 0.5 MG/2 ML NEB RESP TX SCH (19:33)
[2018-10-27] MEDS: busPIRone 15 MG TABLET PO SCH (21:13)
[2018-10-27] MEDS: MEMANTINE 10 MG TABLET PO SCH (21:13)
[2018-10-27] MEDS: CLORAZEPATE 3.75 MG TABLET PO PRN (21:13)
[2018-10-27] MEDS: SERTRALINE 100 MG TABLET PO SCH (21:14)
[2018-10-28] MEDS: ALBUTEROL/IPRATROPIUM 3 ML NEB RESP TX SCH ×4 (00:34→20:34)
[2018-10-28] MEDS: SODIUM CHLORIDE 0.9% 1,000 ML IV SCH ×3 (00:51→14:28)
[2018-10-28 05:21] LABS: Basophils % 0.3 % (0.0-0.8); Eosinophils # 0.1 10*3/uL (0.0-0.87); Eosinophils % 1.1 % (0.00-10.9); Hematocrit 34.1 VOL% (35.7-47.0); Hemoglobin 11.1 GM/DL (12.0-16.0); Immature Granulocytes % 0.5 %; Immature Granulocytes Absolute 0.04 #; Lymphocytes # 0.8 10*3/uL (1.4-4.0); Lymphocytes % 10.4 % (21.3-54.2); Mean Corpuscular HGB Conc 32.6 GM/DL (32-36); Mean Platelet Volume 10.2 FL (9.6-12.0); Monocytes % 3.8 % (1.7-12.7); Neutrophils % 83.9 % (38.7-73.9); Platelet Count 186 T/CUMM (130-400); Red Blood Count 3.83 MC/CUMM (3.8-5.5); Red Cell Distribution Width 19.1 % (9.3-17.3); White Blood Count 7.4 T/CUMM (4-12)
[2018-10-28 05:46] LABS: Calcium 7.2 MG/DL (8.5-10.1); Thyroid Stimulating Hormone 0.309 uIU/ml (0.358-3.74)
[2018-10-28] MEDS: LEVOTHYROXINE 100 MCG TABLET PO SCH (06:01)
[2018-10-28] MEDS ORDERED: DEXTROSE 50% 25 GM/50 ML SYRINGE IV ONE (07:24)
[2018-10-28] MEDS: BUDESONIDE 0.5 MG/2 ML NEB RESP TX SCH ×2 (07:46→20:34)
[2018-10-28] MEDS ORDERED: LIDOCAINE 2% 5 ML VIAL ONE (09:00)
[2018-10-28] MEDS ORDERED: PROPOFOL 200 MG/20 ML VIAL IV ONE (09:00)
[2018-10-28] MEDS: DONEPEZIL 10 MG TABLET PO SCH ×2 (13:30→13:39)
[2018-10-28] MEDS: MEMANTINE 10 MG TABLET PO SCH ×2 (13:31→20:28)
[2018-10-28] MEDS: busPIRone 15 MG TABLET PO SCH ×2 (13:31→20:28)
[2018-10-28] MEDS: PANTOPRAZOLE 40 MG TABLET PO SCH ×2 (13:32→20:28)
[2018-10-28] MEDS: BISACODYL 5 MG TABLET PO SCH ×2 (13:38→18:14)
[2018-10-28] MEDS ORDERED: POTASSIUM CHLORIDE 20 MEQ/15 ML UDCUP PO ONE (17:59)
[2018-10-28] MEDS ORDERED: POLYETHYLENE GLYCOL POWDER 255 GM BOTTLE PO ONE (18:00)
[2018-10-28] MEDS: SERTRALINE 100 MG TABLET PO SCH (20:28)
[2018-10-28] MEDS: CLORAZEPATE 3.75 MG TABLET PO PRN (20:29)
[2018-10-28] MEDS ORDERED: MAGNESIUM CITRATE 300 ML BOTTLE PO ONE (21:00)
[2018-10-29] MEDS: SODIUM CHLORIDE 0.9% 1,000 ML IV SCH ×2 (00:17→09:25)
[2018-10-29] MEDS: ALBUTEROL/IPRATROPIUM 3 ML NEB RESP TX SCH ×3 (00:25→12:34)
[2018-10-29] MEDS: BISACODYL 5 MG TABLET PO SCH (02:09)
[2018-10-29 05:01] LABS: Basophils % 0.3 % (0.0-0.8); Eosinophils # 0.1 10*3/uL (0.0-0.87); Eosinophils % 1.6 % (0.00-10.9); Hematocrit 37.7 VOL% (35.7-47.0); Hemoglobin 12.3 GM/DL (12.0-16.0); Immature Granulocytes Absolute 0.09 #; Mean Corpuscular HGB Conc 32.6 GM/DL (32-36); Mean Corpuscular Volume 90.6 FL (87-102); Mean Platelet Volume 10.6 FL (9.6-12.0); Monocytes % 4.2 % (1.7-12.7); Neutrophils % 81.9 % (38.7-73.9); Platelet Count 178 T/CUMM (130-400); Red Blood Count 4.16 MC/CUMM (3.8-5.5); Red Cell Distribution Width 18.7 % (9.3-17.3); White Blood Count 8.8 T/CUMM (4-12)
[2018-10-29 05:31] LABS: Calcium 7.4 MG/DL (8.5-10.1)
[2018-10-29] MEDS: BUDESONIDE 0.5 MG/2 ML NEB RESP TX SCH ×2 (06:20→07:29)
[2018-10-29] MEDS: LEVOTHYROXINE 100 MCG TABLET PO SCH (06:23)
[2018-10-29] MEDS: MEMANTINE 10 MG TABLET PO SCH ×2 (08:59→21:14)
[2018-10-29] MEDS: PANTOPRAZOLE 40 MG TABLET PO SCH ×2 (08:59→21:14)
[2018-10-29] MEDS: DIGOXIN 0.125 MG TABLET PO SCH (08:59)
[2018-10-29] MEDS: DONEPEZIL 10 MG TABLET PO SCH (08:59)
[2018-10-29] MEDS ORDERED: LIDOCAINE 2% 5 ML VIAL ONE (09:00)
[2018-10-29] MEDS ORDERED: PHENYLEPHRINE 1 MG/10 ML SYRINGE IV ONE (09:00)
[2018-10-29] MEDS: busPIRone 15 MG TABLET PO SCH ×2 (09:00→21:14)
[2018-10-29] MEDS ORDERED: PROPOFOL 200 MG/20 ML VIAL IV ONE (09:00)
[2018-10-29] MEDS: DEXTROMETHORPHAN ER 6 MG/ML 90 ML/BOTTLE PO SCH (17:43)
[2018-10-29] MEDS: BISOPROLOL 5 MG TABLET PO SCH (21:14)
[2018-10-29] MEDS: BUDESONIDE/FORMOTEROL 80-4.5 INHALER 6.9 GM INH SCH (21:15)
[2018-10-29] MEDS: APIXABAN 2.5 MG TABLET PO SCH (21:15)
[2018-10-30] MEDS: CLORAZEPATE 3.75 MG TABLET PO PRN ×2 (01:30→20:57)
[2018-10-30] MEDS: DEXTROMETHORPHAN ER 6 MG/ML 90 ML/BOTTLE PO SCH ×2 (03:00→13:49)
[2018-10-30 04:34] LABS: Basophils % 0.4 % (0.0-0.8); Eosinophils # 0.3 10*3/uL (0.0-0.87); Eosinophils % 2.9 % (0.00-10.9); Hematocrit 35.5 VOL% (35.7-47.0); Hemoglobin 11.2 GM/DL (12.0-16.0); Immature Granulocytes % 0.5 %; Immature Granulocytes Absolute 0.05 #; Lymphocytes # 0.9 10*3/uL (1.4-4.0); Lymphocytes % 9.8 % (21.3-54.2); Mean Corpuscular HGB Conc 31.5 GM/DL (32-36); Mean Corpuscular Volume 90.6 FL (87-102); Mean Platelet Volume 10.5 FL (9.6-12.0); Monocytes % 4.8 % (1.7-12.7); Neutrophils % 81.6 % (38.7-73.9); Platelet Count 161 T/CUMM (130-400); Red Blood Count 3.92 MC/CUMM (3.8-5.5); White Blood Count 9.2 T/CUMM (4-12)
[2018-10-30 05:19] LABS: Calcium 7.4 MG/DL (8.5-10.1)
[2018-10-30] MEDS: FUROSEMIDE 20 MG TABLET PO SCH (10:45)
[2018-10-30] MEDS: MULTIVITAMIN (CENTRUM) TABLET PO SCH (10:52)
[2018-10-30] MEDS: MULTIVITAMIN (OCUVITE) TABLET PO SCH (10:52)
[2018-10-30] MEDS: ASPIRIN EC 81 MG TABLET PO SCH (10:52)
[2018-10-30] MEDS: POTASSIUM CHLORIDE 10 MEQ TABLET PO SCH (10:52)
[2018-10-30] MEDS: MEMANTINE 10 MG TABLET PO SCH ×2 (10:52→20:52)
[2018-10-30] MEDS: busPIRone 15 MG TABLET PO SCH ×2 (10:53→20:52)
[2018-10-30] MEDS: BISOPROLOL 5 MG TABLET PO SCH ×2 (10:53→20:52)
[2018-10-30] MEDS: PANTOPRAZOLE 40 MG TABLET PO SCH ×2 (10:53→20:52)
[2018-10-30] MEDS: MEGESTROL 400 MG/10 ML UDCUP PO SCH (10:53)
[2018-10-30] MEDS: BUDESONIDE/FORMOTEROL 80-4.5 INHALER 6.9 GM INH SCH ×2 (10:53→23:02)
[2018-10-30] MEDS: DONEPEZIL 10 MG TABLET PO SCH (10:53)
[2018-10-30] MEDS: APIXABAN 2.5 MG TABLET PO SCH ×2 (10:55→20:53)
[2018-10-30] MEDS: SODIUM CHLORIDE 0.9% 1,000 ML IV SCH (19:34)
[2018-10-30] MEDS: POTASSIUM CHLORIDE 20 MEQ TABLET PO PRN ×2 (20:52→23:02)
[2018-10-31 05:10] LABS: Basophils % 0.5 % (0.0-0.8); Eosinophils # 0.2 10*3/uL (0.0-0.87); Eosinophils % 2.8 % (0.00-10.9); Hematocrit 35.9 VOL% (35.7-47.0); Hemoglobin 11.6 GM/DL (12.0-16.0); Immature Granulocytes % 0.6 %; Immature Granulocytes Absolute 0.05 #; Lymphocytes % 11.9 % (21.3-54.2); Mean Corpuscular HGB Conc 32.3 GM/DL (32-36); Mean Corpuscular Volume 89.3 FL (87-102); Mean Platelet Volume 10.6 FL (9.6-12.0); Neutrophils % 78.2 % (38.7-73.9); Platelet Count 159 T/CUMM (130-400); Red Blood Count 4.02 MC/CUMM (3.8-5.5); Red Cell Distribution Width 17.2 % (9.3-17.3); White Blood Count 8.2 T/CUMM (4-12)
[2018-10-31 05:25] LABS: Calcium 8.2 MG/DL (8.5-10.1)
[2018-10-31] MEDS: POTASSIUM CHLORIDE 10 MEQ TABLET PO SCH (09:42)
[2018-10-31] MEDS: ASPIRIN EC 81 MG TABLET PO SCH (09:42)
[2018-10-31] MEDS: DONEPEZIL 10 MG TABLET PO SCH (09:42)
[2018-10-31] MEDS: busPIRone 15 MG TABLET PO SCH (09:42)
[2018-10-31] MEDS: APIXABAN 2.5 MG TABLET PO SCH (09:43)
[2018-10-31] MEDS: PANTOPRAZOLE 40 MG TABLET PO SCH (09:43)
[2018-10-31] MEDS: FUROSEMIDE 20 MG TABLET PO SCH (09:43)
[2018-10-31] MEDS: MULTIVITAMIN (OCUVITE) TABLET PO SCH (09:44)
[2018-10-31] MEDS: MULTIVITAMIN (CENTRUM) TABLET PO SCH (09:44)
[2018-10-31] MEDS: MEGESTROL 400 MG/10 ML UDCUP PO SCH (09:44)
[2018-10-31] MEDS: DEXTROMETHORPHAN ER 6 MG/ML 90 ML/BOTTLE PO SCH (09:46)
[2018-10-31] MEDS: BUDESONIDE/FORMOTEROL 80-4.5 INHALER 6.9 GM INH SCH (09:47)
[2018-10-31] MEDS: MEMANTINE 10 MG TABLET PO SCH (09:49)
[2018-10-31] MEDS: BISOPROLOL 5 MG TABLET PO SCH (11:02)
[2018-10-31 16:28] VITALS: BP 98/50
[2018-11-01] MEDS ORDERED: POLYETHYLENE GLYCOL POWDER 17 GM PACK PO SCH (09:00)
== END 2018-10-31 17:19 | DRG 378 ==
LOC: N.ED 04:09 → EDUNIT# 04:09 → N.EDINP 07:24 → SUATTDRO 07:27 → N.CC 13:26 → N.2E 10-30 19:25
PROVIDERS: ADMIT Internal Medicine; ATTEND Hospitalist

== ENCOUNTER 2019-02-18 00:49 | Inpatient (IN) ==
[2019-02-18] MEDS ORDERED: methylPREDNISolone SOD SUC 125 MG/2 ML VIAL IV STA (01:30)
[2019-02-18] MEDS ORDERED: ALBUTEROL/IPRATROPIUM 3 ML NEB RESP TX STA (01:30)
[2019-02-18 01:49] LABS: Basophils # 0.1 10*3/uL (0.0-0.2); Basophils % 0.8 % (0.0-0.8); Eosinophils # 1.2 10*3/uL (0.0-0.87); Eosinophils % 15.3 % (0.00-10.9); Hemoglobin 8.9 GM/DL (12.0-16.0); Immature Granulocytes % 0.4 %; Immature Granulocytes Absolute 0.03 #; Lymphocytes # 1.4 10*3/uL (1.4-4.0); Lymphocytes % 18.5 % (21.3-54.2); Mean Corpuscular Volume 101.1 FL (87-102); Mean Platelet Volume 10.9 FL (9.6-12.0); Monocytes % 8.5 % (1.7-12.7); Neutrophils % 56.5 % (38.7-73.9); Platelet Count 201 T/CUMM (130-400); Red Blood Count 2.67 MC/CUMM (3.8-5.5); Red Cell Distribution Width 12.6 % (9.3-17.3); White Blood Count 7.7 T/CUMM (4-12)
[2019-02-18 02:17] LABS: Alanine Aminotransferase 11 U/L (13-56); Albumin 3.3 G/DL (3.4-5.0); Alkaline Phosphatase 48 U/L (45-117); Aspartate Amino Transferase 13 U/L (0-37); Bilirubin,Total < 0.39 MG/DL (0.2-1.0); Blood Urea Nitrogen 40 MG/DL (7-18); Calcium 8.2 MG/DL (8.5-10.1); Estimated Glom Filtration Rate 18 ML/MIN; Glucose 102 MG/DL (74-106); Osmolality,Calculated 295.8 MOS/KG (273-304); Total Protein 6.2 G/DL (6.4-8.3)
[2019-02-18] MEDS ORDERED: ONDANSETRON 4 MG/2 ML VIAL IV PRN (03:58)
[2019-02-18] MEDS ORDERED: MORPHINE 4 MG/1 ML VIAL IV PRN (03:58)
[2019-02-18] MEDS ORDERED: NICOTINE 21 MG/24 HR PATCH TRANSDERM PRN (03:58)
[2019-02-18] MEDS ORDERED: diphenhydrAMINE CAP 25 MG CAPSULE PO PRN (03:58)
[2019-02-18 04:00] LABS: Eosinophils 16 % (0-10); Hypochromasia 1+; Lymphocytes 20 % (20-55); Ovalocytes Slight; Platelet Estimate Adequate; Segmented Neutrophils 60 % (50-85); Total Cells Counted 100
[2019-02-18] MEDS ORDERED: SODIUM CHLORIDE 0.9% 1,000 ML IV SCH (04:00)
[2019-02-18] MEDS ORDERED: SODIUM CHLORIDE 0.9% 1,000 ML IV STA (04:55)
[2019-02-18] MEDS ORDERED: CLORAZEPATE 3.75 MG TABLET PO PRN (05:57)
[2019-02-18] MEDS ORDERED: traZODone 50 MG TABLET PO PRN (05:57)
[2019-02-18 06:18] LABS: Apearance,Urine CLEAR (Clear); Bacteria,Urine Occasional /HPF (Few); Bilirubin,Urine Negative (Negative); Blood, Urine Negative (Negative); Glucose,Urine (UA) Negative (Negative); Hyaline Casts,Urine 23 /LPF (0-3); Ketones,Urine Negative (Negative); Mucus,Urine Occasional /LPF (Occasional); Nitrite,Urine Negative (Negative); Protein,Urine Negative; RBC,Urine 1 /HPF (0-4); Squamous Epithelial Cell,Urine Occasional /HPF (0-10); Urine Color Yellow (Yellow); Urine Specific Gravity 1.011 (1.001-1.035); Urine Urobilinogen < 2.0 EU/DL (0.2-1.0); WBC,Urine 9 /HPF (0-6)
[2019-02-18 06:47] LABS: Basophils % 0.7 % (0.0-0.8); Eosinophils # 0.1 10*3/uL (0.0-0.87); Eosinophils % 2.1 % (0.00-10.9); Immature Granulocytes % 0.5 %; Immature Granulocytes Absolute 0.03 #; Lymphocytes # 0.6 10*3/uL (1.4-4.0); Mean Corpuscular HGB Conc 33.3 GM/DL (32-36); Mean Corpuscular Volume 99.6 FL (87-102); Mean Platelet Volume 10.9 FL (9.6-12.0); Monocytes % 1.8 % (1.7-12.7); Neutrophils % 85.9 % (38.7-73.9); Platelet Count 220 T/CUMM (130-400); Red Blood Count 2.71 MC/CUMM (3.8-5.5); Red Cell Distribution Width 12.6 % (9.3-17.3); White Blood Count 6.1 T/CUMM (4-12)
[2019-02-18 07:10] LABS: Band Neutrophils 2 % (0-10); Eosinophils 2 % (0-10); Hypochromasia 1+; Lymphocytes 11 % (20-55); Platelet Estimate Adequate; Segmented Neutrophils 81 % (50-85); Total Cells Counted 100
[2019-02-18 07:11] LABS: Ovalocytes Slight
[2019-02-18] MEDS: ALBUTEROL/IPRATROPIUM 3 ML NEB RESP TX SCH ×3 (07:41→18:58)
[2019-02-18] MEDS: LEVOTHYROXINE 100 MCG TABLET PO SCH (08:01)
[2019-02-18] MEDS: DEXTROMETHORPHAN ER 6 MG/ML 90 ML/BOTTLE PO SCH ×2 (08:01→23:24)
[2019-02-18] MEDS ORDERED: metOLazone 2.5 MG TABLET PO SCH (09:00)
[2019-02-18] MEDS ORDERED: BISOPROLOL 5 MG TABLET PO SCH (09:00)
[2019-02-18 09:34] LABS: Basophils % 0.6 % (0.0-0.8); Eosinophils % 0.4 % (0.00-10.9); Hematocrit 25.3 VOL% (35.7-47.0); Hemoglobin 8.6 GM/DL (12.0-16.0); Immature Granulocytes % 0.4 %; Immature Granulocytes Absolute 0.02 #; Lymphocytes # 0.7 10*3/uL (1.4-4.0); Lymphocytes % 12.9 % (21.3-54.2); Mean Corpuscular Volume 98.8 FL (87-102); Mean Platelet Volume 10.6 FL (9.6-12.0); Neutrophils % 83.7 % (38.7-73.9); Platelet Count 198 T/CUMM (130-400); Red Blood Count 2.56 MC/CUMM (3.8-5.5); Red Cell Distribution Width 12.3 % (9.3-17.3); White Blood Count 5.1 T/CUMM (4-12)
[2019-02-18 09:58] LABS: Band Neutrophils 1 % (0-10); Eosinophils 3 % (0-10); Hypochromasia 1+; Lymphocytes 12 % (20-55); Ovalocytes Slight; Platelet Estimate Adequate; Segmented Neutrophils 82 % (50-85); Total Cells Counted 100
[2019-02-18] MEDS ORDERED: SODIUM CHLORIDE 0.9% 1,000 ML IV PRN (14:02)
[2019-02-18] MEDS: DONEPEZIL 10 MG TABLET PO SCH ×2 (14:17→23:23)
[2019-02-18] MEDS: FUROSEMIDE 20 MG TABLET PO SCH (14:17)
[2019-02-18] MEDS: FAMOTIDINE 20 MG/2 ML VIAL IV SCH (14:17)
[2019-02-18] MEDS: POTASSIUM CHLORIDE 10 MEQ TABLET PO SCH (14:17)
[2019-02-18] MEDS: MEMANTINE 10 MG TABLET PO SCH ×2 (14:17→23:23)
[2019-02-18] MEDS: busPIRone 15 MG TABLET PO SCH ×2 (14:17→23:23)
[2019-02-18] MEDS: DIGOXIN 0.125 MG TABLET PO SCH (14:17)
[2019-02-18] MEDS: BUDESONIDE/FORMOTEROL 80-4.5 INHALER 6.9 GM INH SCH ×2 (14:18→23:24)
[2019-02-19] MEDS: ALBUTEROL/IPRATROPIUM 3 ML NEB RESP TX SCH ×3 (00:36→12:43)
[2019-02-19 05:38] LABS: Basophils # 0.1 10*3/uL (0.0-0.2); Basophils % 0.7 % (0.0-0.8); Eosinophils # 0.2 10*3/uL (0.0-0.87); Eosinophils % 2.8 % (0.00-10.9); Hematocrit 28.5 VOL% (35.7-47.0); Hemoglobin 9.3 GM/DL (12.0-16.0); Immature Granulocytes % 0.5 %; Immature Granulocytes Absolute 0.04 #; Lymphocytes # 1.5 10*3/uL (1.4-4.0); Lymphocytes % 19.7 % (21.3-54.2); Mean Corpuscular HGB Conc 32.6 GM/DL (32-36); Mean Platelet Volume 11.1 FL (9.6-12.0); Monocytes % 8.9 % (1.7-12.7); Neutrophils % 67.4 % (38.7-73.9); Platelet Count 200 T/CUMM (130-400); Red Blood Count 2.88 MC/CUMM (3.8-5.5); Red Cell Distribution Width 13.9 % (9.3-17.3); White Blood Count 7.6 T/CUMM (4-12)
[2019-02-19] MEDS: LEVOTHYROXINE 100 MCG TABLET PO SCH (05:53)
[2019-02-19] MEDS: DEXTROMETHORPHAN ER 6 MG/ML 90 ML/BOTTLE PO SCH (06:02)
[2019-02-19 06:17] LABS: Ferritin 51.5 ng/ml (8-252); Free T4 (Free Thyroxine) 0.87 NG/DL (0.76-1.46); Thyroid Stimulating Hormone 0.77 uIU/ml (0.358-3.74)
[2019-02-19 06:20] LABS: Vitamin B12 715 PG/ML (211-911)
[2019-02-19 06:50] LABS: Sedimentation Rate-Westergren 83 MM/HR (0-30)
[2019-02-19 08:27] LABS: Hemoglobin A1 (Alkaline) 97.2 % (96.5-98.5); Hemoglobin A2 (Alkaline) 2.8 % (1.5-3.5)
[2019-02-19] MEDS: DONEPEZIL 10 MG TABLET PO SCH (08:41)
[2019-02-19] MEDS: MEMANTINE 10 MG TABLET PO SCH (08:42)
[2019-02-19] MEDS: DIGOXIN 0.125 MG TABLET PO SCH (08:42)
[2019-02-19] MEDS: FUROSEMIDE 20 MG TABLET PO SCH (08:42)
[2019-02-19] MEDS: FAMOTIDINE 20 MG/2 ML VIAL IV SCH (08:42)
[2019-02-19] MEDS: POTASSIUM CHLORIDE 10 MEQ TABLET PO SCH (08:42)
[2019-02-19] MEDS: busPIRone 15 MG TABLET PO SCH (08:45)
[2019-02-19] MEDS: BUDESONIDE/FORMOTEROL 80-4.5 INHALER 6.9 GM INH SCH (08:50)
[2019-02-19] MEDS ORDERED: BISOPROLOL 5 MG TABLET PO SCH (09:00)
[2019-02-19 10:52] LABS: Calcium 8.9 MG/DL (8.5-10.1); Osmolality,Calculated 291.1 MOS/KG (273-304)
[2019-02-19] MEDS ORDERED: CIPROFLOXACIN 250 MG TABLET PO SCH (11:30)
[2019-02-19 16:26] VITALS: BP 101/54
== END 2019-02-19 17:17 | disposition home or self-care (01) | DRG 812 ==
LOC: EDUNIT# → EDBD → N.ED 00:49 → N.EDINP 03:58 → N.5E 05:35
PROVIDERS: ADMIT Hospitalist; ATTEND Hospitalist

== ENCOUNTER 2019-03-29 14:11 | Inpatient (IN) ==
[2019-03-29] MEDS ORDERED: SODIUM CHLORIDE 0.9% 1,000 ML IV STA ×2 (14:34→15:50)
[2019-03-29] MEDS ORDERED: DICYCLOMINE 20 MG/2 ML AMP IM ONE (14:34)
[2019-03-29] MEDS ORDERED: ONDANSETRON 4 MG/2 ML VIAL IV STA (14:34)
[2019-03-29 14:53] LABS: Basophils # 0.1 10*3/uL (0.0-0.2); Basophils % 0.4 % (0.0-0.8); Eosinophils # 0.1 10*3/uL (0.0-0.87); Eosinophils % 0.8 % (0.00-10.9); Hematocrit 25.7 VOL% (35.7-47.0); Hemoglobin 8.5 GM/DL (12.0-16.0); Immature Granulocytes Absolute 0.37 #; Lymphocytes # 0.7 10*3/uL (1.4-4.0); Lymphocytes % 3.7 % (21.3-54.2); Mean Corpuscular HGB Conc 33.1 GM/DL (32-36); Mean Corpuscular Volume 100.4 FL (87-102); Mean Platelet Volume 10.8 FL (9.6-12.0); Neutrophils % 86.1 % (38.7-73.9); Platelet Count 237 T/CUMM (130-400); Red Blood Count 2.56 MC/CUMM (3.8-5.5); Red Cell Distribution Width 13.2 % (9.3-17.3); White Blood Count 18.6 T/CUMM (4-12)
[2019-03-29 15:21] LABS: Albumin 2.9 G/DL (3.4-5.0); Bilirubin,Total 0.9 MG/DL (0.2-1.0); Calcium 9.2 MG/DL (8.5-10.1); Osmolality,Calculated 295.7 MOS/KG (273-304); Total Protein 7.5 G/DL (6.4-8.3)
[2019-03-29 15:38] LABS: Apearance,Urine CLEAR (Clear); Bacteria,Urine Occasional /HPF (Few); Bilirubin,Urine Negative (Negative); Blood, Urine Negative (Negative); Glucose,Urine (UA) Negative (Negative); Hyaline Casts,Urine 13 /LPF (0-3); Ketones,Urine Negative (Negative); Nitrite,Urine Negative (Negative); Protein,Urine Negative; RBC,Urine 3 /HPF (0-4); Urine Color Yellow (Yellow); Urine Specific Gravity 1.013 (1.001-1.035); Urine Urobilinogen < 2.0 EU/DL (0.2-1.0); WBC,Urine 62 /HPF (0-6)
[2019-03-29] MEDS ORDERED: VANCOMYCIN INJ 1,000 MG in SODIUM CHLORIDE 0.9% 250 ML IV STA (15:40)
[2019-03-29 15:55] LABS: Barbiturates Screen,Urine Negative (Negative); Benzodiazepines Screen,Urine Positive (Negative); Cannabinoid Screen,Urine Negative (Negative); Opiate Screen,Urine Negative (Negative); Phencyclidine Screen,Urine Negative (Negative)
[2019-03-29 16:19] LABS: Band Neutrophils 1 % (0-10); Eosinophils 2 % (0-10); Lymphocytes 9 % (20-55); Segmented Neutrophils 82 % (50-85); Total Cells Counted 100
[2019-03-29 16:20] LABS: Platelet Estimate Normal; Polychromasia 1+
[2019-03-29 16:21] LABS: Anisocytosis 1+; Hypochromasia 1+; Macrocytosis 2+
[2019-03-29] MEDS ORDERED: ONDANSETRON 4 MG/2 ML VIAL IV PRN (16:25)
[2019-03-29] MEDS ORDERED: PROMETHAZINE 25 MG/1 ML VIAL IM PRN (16:25)
[2019-03-29] MEDS ORDERED: ACETAMINOPHEN 325 MG TABLET PO PRN (16:25)
[2019-03-29] MEDS ORDERED: DEXTROSE 5% NACL 0.45% 1,000 ML IV SCH (16:30)
[2019-03-29] MEDS ORDERED: PANTOPRAZOLE 40 MG TABLET PO SCH (16:30)
[2019-03-29 17:02] LABS: Thyroid Stimulating Hormone 0.656 uIU/ml (0.358-3.74)
[2019-03-29] MEDS ORDERED: LEVOFLOXACIN INJ 750 MG in PREMIX 1 EACH IV ONE (17:30)
[2019-03-29] MEDS ORDERED: INFLUENZA VIRUS VACCINE 0.5 ML SYRINGE IM ONE (17:59)
[2019-03-29] MEDS: methylPREDNISolone SOD SUC 40 MG/1 ML VIAL IV SCH (18:05)
[2019-03-29] MEDS: CEFEPIME 1,000 MG in SODIUM CHLORIDE 0.9% 100 ML IV SCH (18:05)
[2019-03-29] MEDS: ENOXAPARIN 30 MG/0.3 ML SYRINGE SUBCUT SCH (18:06)
[2019-03-29 18:13] LABS: Folate 13.7 NG/ML (5.4-24.0)
[2019-03-29] MEDS: NOREPINEPHRINE 8 MG in SODIUM CHLORIDE 0.9% 242 ML IV PRN (19:35)
[2019-03-29] MEDS: DEXTROSE 5% NACL 0.9% 1,000 ML IV SCH (19:55)
[2019-03-29] MEDS: ALBUTEROL/IPRATROPIUM 3 ML NEB RESP TX SCH (20:34)
[2019-03-29] MEDS ORDERED: BISOPROLOL 5 MG TABLET PO SCH (21:00)
[2019-03-29] MEDS ORDERED: traZODone 50 MG TABLET PO SCH (21:00)
[2019-03-29] MEDS: SERTRALINE 100 MG TABLET PO SCH (21:44)
[2019-03-29] MEDS: BUDESONIDE/FORMOTEROL 80-4.5 INHALER 6.9 GM INH SCH (21:44)
[2019-03-29] MEDS: DONEPEZIL 10 MG TABLET PO SCH (21:44)
[2019-03-29] MEDS: PANTOPRAZOLE 40 MG TABLET PO SCH (21:44)
[2019-03-29] MEDS: CLORAZEPATE 3.75 MG TABLET PO SCH (21:44)
[2019-03-29] MEDS: busPIRone 15 MG TABLET PO SCH (21:44)
[2019-03-29] MEDS: POLYVINYL ALCOHOL 1.4% OPH SOLN 15 ML BOTTLE BOTH EYES SCH (21:44)
[2019-03-29] MEDS: MEMANTINE 10 MG TABLET PO SCH (21:44)
[2019-03-29] MEDS: MINERAL OIL/PETROLATUM OPH OINT 3.5 GM TUBE RIGHT EYE SCH (21:44)
[2019-03-30] MEDS: ALBUTEROL/IPRATROPIUM 3 ML NEB RESP TX SCH ×4 (01:53→20:21)
[2019-03-30] MEDS: methylPREDNISolone SOD SUC 40 MG/1 ML VIAL IV SCH ×3 (01:54→17:17)
[2019-03-30] MEDS: DEXTROSE 5% NACL 0.9% 1,000 ML IV SCH ×3 (03:55→20:19)
[2019-03-30 04:08] LABS: Basophils # 0.1 10*3/uL (0.0-0.2); Basophils % 0.3 % (0.0-0.8); Hemoglobin 8.5 GM/DL (12.0-16.0); Immature Granulocytes % 1.1 %; Immature Granulocytes Absolute 0.24 #; Lymphocytes # 0.8 10*3/uL (1.4-4.0); Lymphocytes % 3.7 % (21.3-54.2); Mean Corpuscular HGB Conc 32.7 GM/DL (32-36); Mean Platelet Volume 11.3 FL (9.6-12.0); Monocytes % 5.6 % (1.7-12.7); Neutrophils % 89.3 % (38.7-73.9); Platelet Count 269 T/CUMM (130-400); White Blood Count 22.8 T/CUMM (4-12)
[2019-03-30 04:33] LABS: Albumin 2.4 G/DL (3.4-5.0); Bilirubin,Total 0.9 MG/DL (0.2-1.0); Calcium 8.2 MG/DL (8.5-10.1); Osmolality,Calculated 301.4 MOS/KG (273-304); Risk Ratio 5.09; Total Protein 6.8 G/DL (6.4-8.3)
[2019-03-30 04:38] LABS: Hypochromasia 1+; Lymphocytes 5 % (20-55); Ovalocytes Slight; Platelet Estimate Adequate; Segmented Neutrophils 90 % (50-85); Total Cells Counted 100
[2019-03-30 04:39] LABS: Macrocytosis Slight
[2019-03-30] MEDS: LEVOTHYROXINE 100 MCG TABLET PO SCH (06:30)
[2019-03-30] MEDS: CEFEPIME 1,000 MG in SODIUM CHLORIDE 0.9% 100 ML IV SCH ×2 (06:30→17:17)
[2019-03-30] MEDS: NOREPINEPHRINE 8 MG in SODIUM CHLORIDE 0.9% 242 ML IV PRN ×3 (06:40→16:50)
[2019-03-30] MEDS: POLYETHYLENE GLYCOL POWDER 17 GM PACK PO SCH (09:16)
[2019-03-30] MEDS: MULTIVITAMIN (CENTRUM) TABLET PO SCH (09:17)
[2019-03-30] MEDS: MULTIVITAMIN (OCUVITE) TABLET PO SCH (09:17)
[2019-03-30] MEDS: CLORAZEPATE 3.75 MG TABLET PO SCH ×2 (09:17→20:16)
[2019-03-30] MEDS: MEMANTINE 10 MG TABLET PO SCH ×2 (09:17→20:16)
[2019-03-30] MEDS: PANTOPRAZOLE 40 MG TABLET PO SCH ×2 (09:17→20:16)
[2019-03-30] MEDS: busPIRone 15 MG TABLET PO SCH ×2 (09:17→20:15)
[2019-03-30] MEDS: ASPIRIN EC 81 MG TABLET PO SCH (09:17)
[2019-03-30] MEDS: DONEPEZIL 10 MG TABLET PO SCH ×2 (09:17→20:15)
[2019-03-30] MEDS: BUDESONIDE/FORMOTEROL 80-4.5 INHALER 6.9 GM INH SCH ×2 (09:19→20:20)
[2019-03-30] MEDS: POLYVINYL ALCOHOL 1.4% OPH SOLN 15 ML BOTTLE BOTH EYES SCH ×4 (09:21→20:20)
[2019-03-30] MEDS ORDERED: POTASSIUM CHLORIDE 20 MEQ TABLET PO ONE (10:00)
[2019-03-30] MEDS ORDERED: VANCOMYCIN INJ 750 MG in SODIUM CHLORIDE 0.9% 250 ML IV PRN (10:13)
[2019-03-30] MEDS ORDERED: HYALURONATE/CHONDROITIN 1 EACH KIT INTRAOCULR ONE (10:23)
[2019-03-30] MEDS ORDERED: EPINEPHrine 1 MG/ML VIAL ONE (10:23)
[2019-03-30] MEDS ORDERED: BALANCED SALT IRRIG SOLN 15 ML BOTTLE ONE (10:23)
[2019-03-30] MEDS ORDERED: VANCOMYCIN INJ 1,250 MG in SODIUM CHLORIDE 0.9% 250 ML IV ONE (11:00)
[2019-03-30] MEDS: DIGOXIN 0.125 MG TABLET PO SCH (13:40)
[2019-03-30] MEDS ORDERED: DEXTROSE 10% 250 ML BAG IV PRN (14:36)
[2019-03-30] MEDS ORDERED: GLUCAGON 1 MG VIAL IM PRN (14:36)
[2019-03-30] MEDS: INSULIN LISPRO 100 UNIT/ML SUBCUT SCH (17:17)
[2019-03-30] MEDS: ENOXAPARIN 30 MG/0.3 ML SYRINGE SUBCUT SCH (17:17)
[2019-03-30] MEDS: SERTRALINE 100 MG TABLET PO SCH (20:13)
[2019-03-30] MEDS: MINERAL OIL/PETROLATUM OPH OINT 3.5 GM TUBE RIGHT EYE SCH (20:20)
[2019-03-30] MEDS ORDERED: VANCOMYCIN INJ 750 MG in SODIUM CHLORIDE 0.9% 250 ML IV ONE (21:00)
[2019-03-31] MEDS: INSULIN LISPRO 100 UNIT/ML SUBCUT SCH ×4 (00:20→18:30)
[2019-03-31] MEDS: ALBUTEROL/IPRATROPIUM 3 ML NEB RESP TX SCH ×4 (00:33→20:12)
[2019-03-31] MEDS: methylPREDNISolone SOD SUC 40 MG/1 ML VIAL IV SCH ×3 (02:00→17:04)
[2019-03-31 04:47] LABS: Basophils % 0.1 % (0.0-0.8); Eosinophils % 0.1 % (0.00-10.9); Hematocrit 23.3 VOL% (35.7-47.0); Hemoglobin 7.4 GM/DL (12.0-16.0); Immature Granulocytes Absolute 0.15 #; Lymphocytes # 0.6 10*3/uL (1.4-4.0); Mean Corpuscular HGB Conc 31.8 GM/DL (32-36); Mean Corpuscular Volume 103.1 FL (87-102); Mean Platelet Volume 11.2 FL (9.6-12.0); Monocytes % 5.7 % (1.7-12.7); Neutrophils % 89.1 % (38.7-73.9); Platelet Count 227 T/CUMM (130-400); Red Blood Count 2.26 MC/CUMM (3.8-5.5); Red Cell Distribution Width 12.8 % (9.3-17.3); White Blood Count 14.5 T/CUMM (4-12)
[2019-03-31] MEDS: DEXTROSE 5% NACL 0.9% 1,000 ML IV SCH ×3 (04:53→19:34)
[2019-03-31 05:08] LABS: Hypochromasia 1+; Ovalocytes Slight; Platelet Estimate Adequate
[2019-03-31 05:11] LABS: Calcium 8.2 MG/DL (8.5-10.1); Osmolality,Calculated 294.1 MOS/KG (273-304)
[2019-03-31] MEDS: CEFEPIME 1,000 MG in SODIUM CHLORIDE 0.9% 100 ML IV SCH (06:22)
[2019-03-31] MEDS: LEVOTHYROXINE 100 MCG TABLET PO SCH (06:26)
[2019-03-31] MEDS: MULTIVITAMIN (OCUVITE) TABLET PO SCH (08:20)
[2019-03-31] MEDS: ASPIRIN EC 81 MG TABLET PO SCH (08:20)
[2019-03-31] MEDS: DONEPEZIL 10 MG TABLET PO SCH ×2 (08:20→20:22)
[2019-03-31] MEDS: CLORAZEPATE 3.75 MG TABLET PO SCH ×5 (08:20→23:49)
[2019-03-31] MEDS: MEMANTINE 10 MG TABLET PO SCH ×2 (08:20→20:24)
[2019-03-31] MEDS: MULTIVITAMIN (CENTRUM) TABLET PO SCH (08:20)
[2019-03-31] MEDS: POLYETHYLENE GLYCOL POWDER 17 GM PACK PO SCH (08:20)
[2019-03-31] MEDS: PANTOPRAZOLE 40 MG TABLET PO SCH ×2 (08:21→20:24)
[2019-03-31] MEDS: busPIRone 15 MG TABLET PO SCH ×2 (08:21→20:23)
[2019-03-31] MEDS: POLYVINYL ALCOHOL 1.4% OPH SOLN 15 ML BOTTLE BOTH EYES SCH ×4 (08:25→20:26)
[2019-03-31] MEDS: BUDESONIDE/FORMOTEROL 80-4.5 INHALER 6.9 GM INH SCH ×2 (08:45→20:26)
[2019-03-31] MEDS ORDERED: SODIUM CHLORIDE 0.9% 1,000 ML IV PRN ×2 (09:59→10:01)
[2019-03-31] MEDS: DIGOXIN 0.125 MG TABLET PO SCH (13:56)
[2019-03-31] MEDS ORDERED: cefTRIAXone 1,000 MG in SYRINGE 1 EACH IV SCH ×2 (15:30→21:00)
[2019-03-31] MEDS: ENOXAPARIN 30 MG/0.3 ML SYRINGE SUBCUT SCH (17:03)
[2019-03-31] MEDS ORDERED: LEVOFLOXACIN INJ 500 MG in PREMIX 1 EACH IV SCH (18:00)
[2019-03-31 19:36] LABS: Hematocrit 27.4 VOL% (35.7-47.0); Hemoglobin 8.8 GM/DL (12.0-16.0)
[2019-03-31] MEDS: SERTRALINE 100 MG TABLET PO SCH (20:18)
[2019-03-31] MEDS: MINERAL OIL/PETROLATUM OPH OINT 3.5 GM TUBE RIGHT EYE SCH (20:26)
[2019-04-01] MEDS: ALBUTEROL/IPRATROPIUM 3 ML NEB RESP TX SCH ×3 (01:03→13:46)
[2019-04-01] MEDS: INSULIN LISPRO 100 UNIT/ML SUBCUT SCH ×3 (02:04→12:25)
[2019-04-01] MEDS: methylPREDNISolone SOD SUC 40 MG/1 ML VIAL IV SCH ×2 (02:38→09:01)
[2019-04-01] MEDS: CLORAZEPATE 3.75 MG TABLET PO SCH ×2 (03:44→09:01)
[2019-04-01 05:11] LABS: Basophils % 0.3 % (0.0-0.8); Eosinophils # 0.1 10*3/uL (0.0-0.87); Eosinophils % 0.5 % (0.00-10.9); Hematocrit 30.9 VOL% (35.7-47.0); Hemoglobin 9.7 GM/DL (12.0-16.0); Immature Granulocytes % 1.1 %; Immature Granulocytes Absolute 0.14 #; Lymphocytes # 1.1 10*3/uL (1.4-4.0); Lymphocytes % 8.7 % (21.3-54.2); Mean Corpuscular HGB Conc 31.4 GM/DL (32-36); Mean Corpuscular Volume 102.3 FL (87-102); Mean Platelet Volume 11.1 FL (9.6-12.0); Monocytes % 10.2 % (1.7-12.7); Neutrophils % 79.2 % (38.7-73.9); Platelet Count 224 T/CUMM (130-400); Red Blood Count 3.02 MC/CUMM (3.8-5.5); Red Cell Distribution Width 13.8 % (9.3-17.3); White Blood Count 12.6 T/CUMM (4-12)
[2019-04-01 05:28] LABS: Calcium 8.3 MG/DL (8.5-10.1); Osmolality,Calculated 283.4 MOS/KG (273-304)
[2019-04-01] MEDS: LEVOTHYROXINE 100 MCG TABLET PO SCH (06:02)
[2019-04-01] MEDS: ASPIRIN EC 81 MG TABLET PO SCH (08:09)
[2019-04-01] MEDS: POLYVINYL ALCOHOL 1.4% OPH SOLN 15 ML BOTTLE BOTH EYES SCH ×2 (08:09→12:26)
[2019-04-01] MEDS: busPIRone 15 MG TABLET PO SCH (08:09)
[2019-04-01] MEDS: DONEPEZIL 10 MG TABLET PO SCH (08:09)
[2019-04-01] MEDS: POLYETHYLENE GLYCOL POWDER 17 GM PACK PO SCH (08:10)
[2019-04-01] MEDS: MULTIVITAMIN (OCUVITE) TABLET PO SCH (08:10)
[2019-04-01] MEDS: MULTIVITAMIN (CENTRUM) TABLET PO SCH (08:10)
[2019-04-01] MEDS: BUDESONIDE/FORMOTEROL 80-4.5 INHALER 6.9 GM INH SCH (08:10)
[2019-04-01] MEDS: PANTOPRAZOLE 40 MG TABLET PO SCH (08:10)
[2019-04-01] MEDS: MEMANTINE 10 MG TABLET PO SCH (08:10)
[2019-04-01] MEDS: DEXTROSE 5% NACL 0.9% 1,000 ML IV SCH (08:15)
[2019-04-01] MEDS: DIGOXIN 0.125 MG TABLET PO SCH (12:26)
[2019-04-01 12:52] VITALS: BP 105/50
[2019-04-01] MEDS ORDERED: VANCOMYCIN INJ 750 MG in SODIUM CHLORIDE 0.9% 250 ML IV SCH (13:30)
== END 2019-04-01 14:49 | disposition home or self-care (01) | DRG 871 ==
LOC: EDUNIT# → EDBD → N.ED 14:11 → SUATTDRO 17:01 → N.EDINP 17:01 → N.CC 17:33 → N.5E 04-01 09:41
PROVIDERS: ADMIT Internal Medicine; ATTEND Internal Medicine

== ENCOUNTER 2019-07-12 00:34 | Inpatient (IN) ==
[2019-07-12] MEDS ORDERED: ACETAMINOPHEN 500 MG TABLET PO STA (00:40)
[2019-07-12] MEDS ORDERED: FUROSEMIDE 100 MG/10 ML VIAL IV STA (00:40)
[2019-07-12] MEDS ORDERED: cefTRIAXone 1,000 MG in SODIUM CHLORIDE 0.9% 100 ML IV STA (00:40)
[2019-07-12] MEDS ORDERED: FUROSEMIDE 40 MG/4 ML VIAL IV STA (00:47)
[2019-07-12] MEDS ORDERED: SODIUM CHLORIDE 0.9% 500 ML IV STA ×2 (00:47→02:05)
[2019-07-12] MEDS ORDERED: ACETAMINOPHEN 325 MG SUPP RECTAL STA (00:47)
[2019-07-12 00:52] LABS: ABG Base Excess 1.4 MMOL/L (-2.5-2.5); ABG HCO3 25.5 MMOL/L (20-26); ABG Oxygen Saturation 86.3 % (95-100); ABG PCO2 37.7 MM HG (35-48); ABG PH 7.438 (7.35-7.45); ABG PO2 52.3 MM HG (80-95); ABG TCO2 24.4 MMOL/L (23-27)
[2019-07-12] MEDS ORDERED: methylPREDNISolone SOD SUC 125 MG/2 ML VIAL IV STA (00:57)
[2019-07-12] MEDS ORDERED: ALBUTEROL/IPRATROPIUM 3 ML NEB RESP TX STA ×2 (00:57→02:44)
[2019-07-12 01:18] LABS: Basophils # 0.1 10*3/uL (0.0-0.2); Basophils % 0.3 % (0.0-0.8); Eosinophils # 0.1 10*3/uL (0.0-0.87); Eosinophils % 0.4 % (0.00-10.9); Hematocrit 18.6 VOL% (35.7-47.0); Immature Granulocytes % 2.1 %; Immature Granulocytes Absolute 0.58 #; Lymphocytes # 0.5 10*3/uL (1.4-4.0); Lymphocytes % 1.6 % (21.3-54.2); Mean Corpuscular HGB Conc 31.2 GM/DL (32-36); Mean Corpuscular Volume 105.1 FL (87-102); Mean Platelet Volume 11.2 FL (9.6-12.0); Neutrophils % 92.6 % (38.7-73.9); Platelet Count 353 T/CUMM (130-400); Red Blood Count 1.77 MC/CUMM (3.8-5.5); Red Cell Distribution Width 14.1 % (9.3-17.3); White Blood Count 27.3 T/CUMM (4-12)
[2019-07-12 01:23] LABS: Hemoglobin 5.8 GM/DL (12.0-16.0)
[2019-07-12 01:29] LABS: Apearance,Urine CLOUDY (Clear); Bilirubin,Urine Negative (Negative); Blood, Urine Negative (Negative); Glucose,Urine (UA) Negative (Negative); Granular Casts,Urine 3 /LPF (0-1); Hyaline Casts,Urine 57 /LPF (0-3); Ketones,Urine Negative (Negative); Mucus,Urine Occasional /LPF (Occasional); Nitrite,Urine Negative (Negative); Protein,Urine 30 MG/DL; RBC,Urine 2 /HPF (0-4); Squamous Epithelial Cell,Urine Occasional /HPF (0-10); Urine Color Amber (Yellow); Urine Specific Gravity 1.017 (1.001-1.035); Urine Urobilinogen < 2.0 EU/DL (0.2-1.0); WBC,Urine 9 /HPF (0-6)
[2019-07-12] MEDS ORDERED: FAMOTIDINE 20 MG/2 ML VIAL IV STA (01:30)
[2019-07-12 01:37] LABS: Alanine Aminotransferase 25 U/L (13-56); Albumin 1.9 G/DL (3.4-5.0); Alkaline Phosphatase 92 U/L (45-117); Aspartate Amino Transferase 35 U/L (0-37); Blood Urea Nitrogen 73 MG/DL (7-18); Calcium 8.4 MG/DL (8.5-10.1); Estimated Glom Filtration Rate 13 ML/MIN; Glucose 111 MG/DL (74-106); Osmolality,Calculated 290.2 MOS/KG (273-304); Total Protein 6.1 G/DL (6.4-8.3); Troponin I 0.027 NG/ML (0.00-0.045)
[2019-07-12] MEDS ORDERED: PANTOPRAZOLE 40 MG VIAL IV STA (01:52)
[2019-07-12] MEDS ORDERED: ONDANSETRON 4 MG/2 ML VIAL IV PRN (02:36)
[2019-07-12] MEDS ORDERED: NICOTINE 21 MG/24 HR PATCH TRANSDERM PRN (02:36)
[2019-07-12] MEDS ORDERED: SODIUM CHLORIDE 0.9% 1,000 ML IV PRN (02:50)
[2019-07-12] MEDS: PANTOPRAZOLE INJ 200 MG in SODIUM CHLORIDE 0.9% 250 ML IV SCH (03:35)
[2019-07-12] MEDS ORDERED: SODIUM CHLORIDE 0.9% 1,000 ML IV ONE (03:54)
[2019-07-12] MEDS ORDERED: PHENYLEPHRINE DRIP 40 MG/250 ML PREMIX IV ONE (03:55)
[2019-07-12] MEDS: PHENYLEPHRINE DRIP 40 MG/250 ML PREMIX IV PRN ×7 (03:57→23:08)
[2019-07-12 03:58] LABS: Band Neutrophils 4 % (0-10); Eosinophils 3 % (0-10); Hypochromasia 1+; Lymphocytes 2 % (20-55); Macrocytosis Slight; Ovalocytes Slight; Segmented Neutrophils 88 % (50-85); Total Cells Counted 100
[2019-07-12 03:59] LABS: Platelet Estimate Normal
[2019-07-12] MEDS ORDERED: DILTIAZEM 50 MG/10 ML VIAL IV ONE (04:02)
[2019-07-12] MEDS ORDERED: DILTIAZEM 25 MG/5 ML VIAL IV ONE (04:02)
[2019-07-12] MEDS: dilTIAZem Drip 125 MG/125 ML PREMIX IV SCH (04:25)
[2019-07-12] MEDS ORDERED: niCARdipine INJ 25 MG in SODIUM CHLORIDE 0.9% 240 ML IV PRN (04:45)
[2019-07-12] MEDS ORDERED: VANCOMYCIN INJ 750 MG in SODIUM CHLORIDE 0.9% 250 ML IV PRN (04:45)
[2019-07-12 05:10] LABS: Basophils # 0.1 10*3/uL (0.0-0.2); Basophils % 0.1 % (0.0-0.8); Eosinophils # 0.1 10*3/uL (0.0-0.87); Eosinophils % 0.1 % (0.00-10.9); Hematocrit 20.8 VOL% (35.7-47.0); Immature Granulocytes Absolute 1.36 #; Lymphocytes # 0.9 10*3/uL (1.4-4.0); Lymphocytes % 1.9 % (21.3-54.2); Mean Corpuscular HGB Conc 30.8 GM/DL (32-36); Mean Corpuscular Volume 106.7 FL (87-102); Mean Platelet Volume 11.5 FL (9.6-12.0); Monocytes % 2.8 % (1.7-12.7); Neutrophils % 92.1 % (38.7-73.9); Platelet Count 375 T/CUMM (130-400); Red Blood Count 1.95 MC/CUMM (3.8-5.5); Red Cell Distribution Width 14.5 % (9.3-17.3)
[2019-07-12] MEDS ORDERED: AMIODARONE INJ 150 MG in DEXTROSE 5% 100 ML IV ONE ×2 (05:11→23:10)
[2019-07-12] MEDS ORDERED: AMIODARONE 450 MG/9 ML VIAL IV ONE (05:14)
[2019-07-12] MEDS ORDERED: AMIODARONE 150 MG/3 ML VIAL ONE ×2 (05:14→23:03)
[2019-07-12 05:16] LABS: Hemoglobin 6.4 GM/DL (12.0-16.0); White Blood Count 44.7 T/CUMM (4-12)
[2019-07-12] MEDS ORDERED: AMIODARONE INJ 450 MG in DEXTROSE 5% 241 ML IV SCH ×2 (05:30→23:30)
[2019-07-12] MEDS ORDERED: VANCOMYCIN INJ 1,000 MG in SODIUM CHLORIDE 0.9% 250 ML IV ONE (05:30)
[2019-07-12 05:42] LABS: Folate 5.6 NG/ML (5.4-24.0); Vitamin B12 622 PG/ML (211-911)
[2019-07-12 05:57] LABS: Band Neutrophils 9 % (0-10); Burr Cells Few; Hypochromasia 1+; Lymphocytes 2 % (20-55); Macrocytosis Slight; Metamyelocytes 1 %; Segmented Neutrophils 86 % (50-85); Total Cells Counted 100
[2019-07-12 05:58] LABS: Ovalocytes Slight; Platelet Estimate Normal
[2019-07-12 07:17] LABS: Allen Test Positive; Pt O2 Delivery Device BIPAP
[2019-07-12 07:18] LABS: ABG Base Excess -3.8 MMOL/L (-2.5-2.5); ABG HCO3 21.2 MMOL/L (20-26); ABG Oxygen Saturation 99.7 % (95-100); ABG PCO2 54.8 MM HG (35-48); ABG PH 7.241 (7.35-7.45); ABG TCO2 22.8 MMOL/L (23-27)
[2019-07-12] MEDS: ALBUTEROL/IPRATROPIUM 3 ML NEB RESP TX SCH ×3 (07:30→19:35)
[2019-07-12 07:33] LABS: Sedimentation Rate-Westergren 142 MM/HR (0-30)
[2019-07-12] MEDS: POLYETHYLENE GLYCOL POWDER 17 GM PACK PO SCH ×2 (12:05→21:21)
[2019-07-12] MEDS ORDERED: LORazepam 2 MG/1 ML VIAL ONE ×2 (13:55→18:31)
[2019-07-12] MEDS: LORazepam 2 MG/1 ML VIAL IV PRN (14:02)
[2019-07-12 21:56] LABS: Hematocrit 28.9 VOL% (35.7-47.0)
[2019-07-12 21:58] LABS: Hemoglobin 9.3 GM/DL (12.0-16.0)
[2019-07-13] MEDS: ALBUTEROL/IPRATROPIUM 3 ML NEB RESP TX SCH ×4 (00:52→20:36)
[2019-07-13] MEDS ORDERED: cefTRIAXone 1,000 MG in SYRINGE 1 EACH IV SCH ×2 (01:00→08:00)
[2019-07-13] MEDS: PHENYLEPHRINE DRIP 40 MG/250 ML PREMIX IV PRN ×4 (01:21→17:34)
[2019-07-13] MEDS: LORazepam 2 MG/1 ML VIAL IV PRN ×3 (03:53→17:30)
[2019-07-13 04:23] LABS: Basophils # 0.3 10*3/uL (0.0-0.2); Basophils % 0.5 % (0.0-0.8); Eosinophils % 0.1 % (0.00-10.9); Hematocrit 28.8 VOL% (35.7-47.0); Hemoglobin 9.4 GM/DL (12.0-16.0); Immature Granulocytes % 3.2 %; Immature Granulocytes Absolute 1.53 #; Lymphocytes # 0.5 10*3/uL (1.4-4.0); Lymphocytes % 0.9 % (21.3-54.2); Mean Corpuscular HGB Conc 32.6 GM/DL (32-36); Mean Corpuscular Volume 97.6 FL (87-102); Mean Platelet Volume 10.7 FL (9.6-12.0); Monocytes % 2.7 % (1.7-12.7); Neutrophils % 92.6 % (38.7-73.9); Platelet Count 403 T/CUMM (130-400); Red Blood Count 2.95 MC/CUMM (3.8-5.5); Red Cell Distribution Width 16.2 % (9.3-17.3)
[2019-07-13 04:24] LABS: White Blood Count 47.8 T/CUMM (4-12)
[2019-07-13 04:40] LABS: Calcium 8.1 MG/DL (8.5-10.1); Osmolality,Calculated 297.4 MOS/KG (273-304)
[2019-07-13 04:59] LABS: Band Neutrophils 3 % (0-10); Eosinophils 1 % (0-10); Hypochromasia 1+; Segmented Neutrophils 93 % (50-85); Total Cells Counted 100
[2019-07-13 05:00] LABS: Macrocytosis Slight; Ovalocytes Slight
[2019-07-13 05:01] LABS: Platelet Estimate Increased
[2019-07-13] MEDS: dilTIAZem Drip 125 MG/125 ML PREMIX IV SCH (05:31)
[2019-07-13] MEDS ORDERED: PANTOPRAZOLE 40 MG TABLET PO SCH (07:00)
[2019-07-13 10:48] LABS: Hemoglobin A1 (Alkaline) 97.3 % (96.5-98.5); Hemoglobin A2 (Alkaline) 2.7 % (1.5-3.5)
[2019-07-13 11:05] LABS: Albumin 1.8 G/DL (3.4-5.0); Total Protein 6.4 G/DL (6.4-8.3)
[2019-07-13 11:07] LABS: INR 1.2; PT Patient Result 12.5 SECS (9.6-12.2); Partial Thromboplastin Time 26.9 SECS (20.8-36.0)
[2019-07-13] MEDS ORDERED: VANCOMYCIN INJ 750 MG in SODIUM CHLORIDE 0.9% 250 ML IV ONE (11:30)
[2019-07-13] MEDS: POLYETHYLENE GLYCOL POWDER 17 GM PACK PO SCH (12:24)
[2019-07-13] MEDS: MEROPENEM 500 MG in SODIUM CHLORIDE 0.9% 100 ML IV SCH ×2 (12:24→23:02)
[2019-07-13] MEDS: PANTOPRAZOLE INJ 200 MG in SODIUM CHLORIDE 0.9% 250 ML IV SCH (13:19)
[2019-07-13] MEDS: AMIODARONE INJ 450 MG in DEXTROSE 5% 241 ML IV SCH (13:26)
[2019-07-13 19:27] LABS: Lymphocytes,Pleural Fluid 10 %; Monocytes,Pleural Fluid 1 %; Neutrophils,Pleural Fluid 89 %
[2019-07-13 19:28] LABS: RBC,Pleural Fluid 1174 T/CUMM
[2019-07-13] MEDS: PANTOPRAZOLE 40 MG VIAL IV SCH (21:05)
[2019-07-13] MEDS: POLYETHYLENE GLYCOL POWDER 17 GM PACK NG SCH (21:05)
[2019-07-14] MEDS: ALBUTEROL/IPRATROPIUM 3 ML NEB RESP TX SCH ×4 (01:41→19:53)
[2019-07-14] MEDS ORDERED: LORazepam 2 MG/1 ML VIAL ONE (03:13)
[2019-07-14] MEDS: LORazepam 2 MG/1 ML VIAL IV PRN ×3 (03:24→20:12)
[2019-07-14 06:06] LABS: Basophils # 0.1 10*3/uL (0.0-0.2); Basophils % 0.3 % (0.0-0.8); Eosinophils # 0.2 10*3/uL (0.0-0.87); Eosinophils % 1.1 % (0.00-10.9); Hematocrit 25.9 VOL% (35.7-47.0); Hemoglobin 8.4 GM/DL (12.0-16.0); Immature Granulocytes % 1.5 %; Immature Granulocytes Absolute 0.33 #; Lymphocytes # 0.7 10*3/uL (1.4-4.0); Lymphocytes % 2.9 % (21.3-54.2); Mean Corpuscular HGB Conc 32.4 GM/DL (32-36); Mean Corpuscular Volume 98.5 FL (87-102); Mean Platelet Volume 11.1 FL (9.6-12.0); Monocytes % 4.2 % (1.7-12.7); Platelet Count 304 T/CUMM (130-400); Red Blood Count 2.63 MC/CUMM (3.8-5.5); Red Cell Distribution Width 16.1 % (9.3-17.3); White Blood Count 22.4 T/CUMM (4-12)
[2019-07-14] MEDS: dilTIAZem Drip 125 MG/125 ML PREMIX IV SCH (06:13)
[2019-07-14 06:14] LABS: Calcium 8.2 MG/DL (8.5-10.1); Osmolality,Calculated 301.8 MOS/KG (273-304)
[2019-07-14 06:29] LABS: Band Neutrophils 2 % (0-10); Eosinophils 1 % (0-10); Hypochromasia 1+; Lymphocytes 4 % (20-55); Ovalocytes Slight; Platelet Estimate Adequate; Segmented Neutrophils 91 % (50-85); Total Cells Counted 100
[2019-07-14 06:30] LABS: Macrocytosis Slight
[2019-07-14] MEDS: AMIODARONE INJ 450 MG in DEXTROSE 5% 241 ML IV SCH ×2 (08:36→15:11)
[2019-07-14] MEDS: INSULIN REGULAR 100 UNIT/ML SUBCUT SCH ×5 (08:37→23:59)
[2019-07-14] MEDS: POLYETHYLENE GLYCOL POWDER 17 GM PACK NG SCH ×2 (08:40→21:45)
[2019-07-14] MEDS: PANTOPRAZOLE 40 MG VIAL IV SCH ×2 (08:40→21:45)
[2019-07-14] MEDS: MEROPENEM 500 MG in SODIUM CHLORIDE 0.9% 100 ML IV SCH ×2 (10:01→22:21)
[2019-07-14] MEDS ORDERED: risperiDONE 0.5 MG TABLET PO PRN (11:33)
[2019-07-14] MEDS: MULTIVITAMIN (OCUVITE) TABLET PO SCH (12:46)
[2019-07-14] MEDS: POLYETHYLENE GLYCOL POWDER 17 GM PACK PO SCH (12:46)
[2019-07-14] MEDS: DONEPEZIL 10 MG TABLET PO SCH (12:47)
[2019-07-14] MEDS: MEMANTINE 10 MG TABLET PO SCH (12:47)
[2019-07-14] MEDS: BISOPROLOL 5 MG TABLET PO SCH ×2 (12:47→21:46)
[2019-07-14] MEDS: DIGOXIN 0.125 MG TABLET PO SCH (12:47)
[2019-07-14] MEDS: ASPIRIN EC 81 MG TABLET PO SCH (12:48)
[2019-07-14] MEDS: busPIRone 15 MG TABLET PO SCH ×2 (12:48→21:45)
[2019-07-14] MEDS: QUEtiapine 25 MG TABLET PO SCH ×2 (12:57→21:45)
[2019-07-14] MEDS: POLYVINYL ALCOHOL 1.4% OPH SOLN 15 ML BOTTLE BOTH EYES SCH ×3 (12:58→21:48)
[2019-07-14] MEDS: BUDESONIDE/FORMOTEROL 80-4.5 INHALER 6.9 GM INH SCH ×2 (13:27→21:48)
[2019-07-14] MEDS ORDERED: DIVALPROEX ER 250 MG TABLET PO SCH (21:00)
[2019-07-14] MEDS: MORPHINE 4 MG/1 ML VIAL IV PRN (21:47)
[2019-07-15] MEDS: ALBUTEROL/IPRATROPIUM 3 ML NEB RESP TX SCH ×3 (01:37→12:17)
[2019-07-15] MEDS: AMIODARONE INJ 450 MG in DEXTROSE 5% 241 ML IV SCH ×2 (01:48→17:42)
[2019-07-15] MEDS: LORazepam 2 MG/1 ML VIAL IV PRN (01:49)
[2019-07-15] MEDS: INSULIN REGULAR 100 UNIT/ML SUBCUT SCH ×4 (03:51→16:35)
[2019-07-15 04:33] LABS: Basophils # 0.1 10*3/uL (0.0-0.2); Basophils % 0.3 % (0.0-0.8); Eosinophils # 0.2 10*3/uL (0.0-0.87); Hematocrit 29.3 VOL% (35.7-47.0); Hemoglobin 9.5 GM/DL (12.0-16.0); Immature Granulocytes % 1.1 %; Immature Granulocytes Absolute 0.23 #; Lymphocytes # 1.1 10*3/uL (1.4-4.0); Lymphocytes % 4.8 % (21.3-54.2); Mean Corpuscular HGB Conc 32.4 GM/DL (32-36); Monocytes % 5.6 % (1.7-12.7); Neutrophils % 87.2 % (38.7-73.9); Platelet Count 358 T/CUMM (130-400); Red Blood Count 2.99 MC/CUMM (3.8-5.5); Red Cell Distribution Width 15.4 % (9.3-17.3); White Blood Count 21.9 T/CUMM (4-12)
[2019-07-15 04:54] LABS: Hypochromasia 1+; Lymphocytes 4 % (20-55); Macrocytosis Slight; Ovalocytes Slight; Platelet Estimate Adequate; Segmented Neutrophils 94 % (50-85); Total Cells Counted 100
[2019-07-15 05:04] LABS: Calcium 8.8 MG/DL (8.5-10.1); Osmolality,Calculated 307.4 MOS/KG (273-304)
[2019-07-15] MEDS: MORPHINE 4 MG/1 ML VIAL IV PRN ×3 (05:34→14:40)
[2019-07-15] MEDS ORDERED: LEVOTHYROXINE 100 MCG TABLET PO SCH (06:30)
[2019-07-15] MEDS ORDERED: MULTIVITAMIN (CENTRUM) TABLET PO SCH (09:00)
[2019-07-15] MEDS ORDERED: METOPROLOL TARTRATE 5 MG/5 ML VIAL IV ONE (10:01)
[2019-07-15] MEDS: POLYETHYLENE GLYCOL POWDER 17 GM PACK NG SCH (10:21)
[2019-07-15] MEDS: BISOPROLOL 5 MG TABLET PO SCH (10:21)
[2019-07-15] MEDS: MULTIVITAMIN (OCUVITE) TABLET PO SCH (10:21)
[2019-07-15] MEDS: DONEPEZIL 10 MG TABLET PO SCH (10:22)
[2019-07-15] MEDS: QUEtiapine 25 MG TABLET PO SCH (10:22)
[2019-07-15] MEDS: MEMANTINE 10 MG TABLET PO SCH (10:23)
[2019-07-15] MEDS: busPIRone 15 MG TABLET PO SCH (10:23)
[2019-07-15] MEDS: ASPIRIN EC 81 MG TABLET PO SCH (10:23)
[2019-07-15] MEDS: POLYETHYLENE GLYCOL POWDER 17 GM PACK PO SCH (10:24)
[2019-07-15] MEDS: PANTOPRAZOLE 40 MG VIAL IV SCH (10:31)
[2019-07-15] MEDS: DIGOXIN 0.125 MG TABLET PO SCH (10:31)
[2019-07-15] MEDS: POLYVINYL ALCOHOL 1.4% OPH SOLN 15 ML BOTTLE BOTH EYES SCH ×2 (10:42→14:40)
[2019-07-15] MEDS: BUDESONIDE/FORMOTEROL 80-4.5 INHALER 6.9 GM INH SCH (10:42)
[2019-07-15] MEDS ORDERED: VANCOMYCIN INJ 750 MG in SODIUM CHLORIDE 0.9% 250 ML IV SCH (11:00)
[2019-07-15] MEDS: MEROPENEM 500 MG in SODIUM CHLORIDE 0.9% 100 ML IV SCH (11:15)
[2019-07-15] MEDS ORDERED: MORPHINE 4 MG/1 ML VIAL IV STA (16:08)
[2019-07-15] MEDS ORDERED: dilTIAZem Drip 125 MG/125 ML PREMIX IV SCH (16:30)
[2019-07-15] MEDS ORDERED: FUROSEMIDE 40 MG/4 ML VIAL IV STA (16:53)
[2019-07-15 17:05] VITALS: BP 121/68
== END 2019-07-15 18:50 | disposition expired | DRG 871 ==
LOC: EDUNIT# → EDBD → N.ED 00:34 → SUATTDRO 02:36 → N.EDINP 02:36 → N.ICU 03:04 → N.TELES 07-14 16:09
PROVIDERS: ADMIT Internal Medicine; ATTEND Internal Medicine